=== PATIENT | female | born 1980 | race American Indian/Alaskan Native ===

== ENCOUNTER 2018-06-14 15:42 | Emergency (ER) | payer MEDICARE, MEDICAID, SELFPAY ==
[2018-06-14 15:48] VITALS: BP 121/84; PULSE 69; RESP 18; TEMP 36.7; O2SAT 99
--- NOTE | 2018-06-14 16:19 | ED.EXTPRO ---
HPI - Extremity Problem <KARI Lopez-BC - Last Filed: 06/14/18 16:37> General Chief complaint: Extremity Problem,Nontraumatic Stated complaint: stabbing pains right arm Time Seen by Provider: 06/14/18 16:07 Source: patient Mode of arrival: ambulatory Limitations: no limitations History of Present Illness HPI Narrative: Patient is a 30-year-old female with history of Kienbock's disease who presents with chief complaint of right wrist pain ongoing for over a year. She has been seen at [facility] for this complaint on April 02 of May 28 as well as a visit on June 13. She states she left prior to medical care on the . She states she is finishing her prednisone as well as her Percocet. She denies any recent trauma. She did states that the pain is coming from her wrist in shooting up her hand down her arm. She has taken Tylenol and Aleve. She states she has tried gabapentin but that made her acid reflux worse. She does complain of decreased range of motion in her wrist and her hand. She is requesting contact information for another orthopedist as her original orthopedist will ?not see her anymore. She states she had a CT as well as an MRI done at [facility] last month. Related Data Home Medications Medication Instructions Recorded Confirmed paroxetine HCl [Paxil] 20 mg PO QDAY #0 08/24/11 quetiapine [Seroquel] 100 mg PO QDAY #0 08/24/11 Previous Rx's Medication Instructions Recorded lidocaine 1 patch TOP DAILY #15 each 06/14/18 pregabalin [Lyrica] 75 mg PO BID #30 cap 06/14/18 Review of Systems <ANDRADE LopezBC - Last Filed: 06/14/18 16:37> Review of Systems GENERAL: Denies chills, fatigue, malaise, fever, sweats. HEENT: Denies sinus pain, ear pain, sore throat, difficulty swallowing, dizziness. RESPIRATORY: Denies dyspnea, cough, wheezing, hemoptysis, sputum. CARDIOVASCULAR: Denies chest pain, palpitations, orthopnea, edema, GASTROINTESTINAL: Denies nausea, vomiting, abdominal pain, diarrhea, constipation, melena. : Denies dysuria, frequency, incontinence, hematuria, urinary retention. MUSCULOSKELETAL: See HPI SKIN: Denies rash, skin lesions, or other NEUROLOGIC: Denies weakness, headache, numbness, change in speech, confusion, seizures, incoordination. PSYCHIATRIC: No concerning psychosocial issues. 12 point review of systems is negative except for those stated above Exam <Amy GroverKARI andrews-BC - Last Filed: 06/14/18 16:37> Narrative Exam Narrative: GENERAL: This is a well-nourished, well-developed patient, in no acute distress HEAD: Atraumatic. Normocephalic. No temporal or scalp tenderness. EYES: Pupils equal round and reactive. Extraocular motions intact. No scleral icterus. No injection or drainage. ENT: Nose without bleeding, purulent drainage or septal hematoma. Throat without erythema, tonsillar hypertrophy or exudate. Uvula midline. Airway patent. NECK: Trachea midline. No JVD or lymphadenopathy. Supple, nontender, no meningeal signs. CARDIOVASCULAR: Regular rate and rhythm without murmurs, gallops, or rubs. RESPIRATORY: Clear to auscultation. Breath sounds equal bilaterally. No wheezes, rales, or rhonchi. GASTROINTESTINAL: Abdomen soft, non-tender, nondistended. No hepato-splenomegaly, or palpable masses. No guarding. EXTREMITIES: Diffuse right wrist tenderness to palpation. Positive right radial pulse. Patient is able to flex, extend and rotate wrist approximately 30? all directions. Patient is able to pronate and supinate forearm. Patient is able to thumbs-up, thumbs down, make a okay sign. Capillary refill less than 2 sec. Strength is equal upper extremities bilaterally. Good technical product manager strength right hand. BACK: Nontender without deformity or crepitance. No flank tenderness. NEURO: AOx3. SKIN: No ecchymosis erythema or rash noted right hand or forearm. Initial Vital Signs Initial Vital Signs: Vital Signs Temperature 98.0 F 06/14/18 15:48 Pulse Rate 69 06/14/18 15:48 Respiratory Rate 18 06/14/18 15:48 Blood Pressure 121/84 06/14/18 15:48 Pulse Oximetry 99 06/14/18 15:48 <Cristopher Yun DO - Last Filed: 06/14/18 17:13> Initial Vital Signs Initial Vital Signs: Vital Signs Temperature 98.0 F 06/14/18 15:48 Pulse Rate 69 06/14/18 15:48 Respiratory Rate 18 06/14/18 15:48 Blood Pressure 121/84 06/14/18 15:48 Pulse Oximetry 99 06/14/18 15:48 Course <KARI Lopez-BC - Last Filed: 06/14/18 16:37> Vital Signs - 8 hr 06/14/18 15:48 Temperature 98.0 F Pulse Rate 69 Respiratory Rate 18 Blood Pressure 121/84 Pulse Oximetry 99 <Cristopher Yun DO - Last Filed: 06/14/18 17:13> Vital Signs - 8 hr 06/14/18 15:48 Temperature 98.0 F Pulse Rate 69 Respiratory Rate 18 Blood Pressure 121/84 Pulse Oximetry 99 MDM - Extremity (Nontraumatic) <ANDRADE LopezBC - Last Filed: 06/14/18 16:37> MDM Narrative Medical decision making narrative: Patient is a 38-year-old female presents with chronic right arm pain. She is neurovascularly intact, hemodynamically stable and nontoxic appearing. Given that she does had a CT and an MRI, I do not think she needs any other imaging today specially given that she is neurovascularly intact in does not have any trauma. She is requesting contact information for a new orthopedist so I gave her contact information for [facility]. I discussed at length return precautions to the emergency department. She is already taking Tylenol, Aleve and opiates at this point in time. I am not willing to treat her chronic pain with opiates in the emergency department. Thus I offered her gabapentin but she states that it makes her GERD worse, so I offered her Lyrica. I discussed that this can be an expensive medication on that sure if her insurance will cover it. I also discussed using [id number] lidocaine patches. Discharge Plan Departure Patient Disposition: Home Clinical Impression: Chronic pain of right wrist Discharge Date/Time: 06/14/18 16:43 Interventions: ED Discharge Assessment Last Done: 06/14/18 16:42 Instructions: How To Perform RICE (Rest, Ice, Compress, Elevate), DI for Wrist Pain Activity Restrictions/Additional Instructions: I have given you contact information for [facility]. You can feel free to call them and see if you can arrange follow-up with them. You can also follow up with primary care provider. I am giving you 2 prescriptions today. One is for a pain patch. The other is for that nerve pain medication. I suggest continuing Tylenol, Aleve, rest ice compression elevation as needed and able. Please follow-up with primary care provider. Prescriptions: New pregabalin [Lyrica] 75 mg capsule 75 mg PO BID Qty: 30 RF: 0 lidocaine 5 % adhesive patch,medicated 1 patch TOP DAILY Qty: 15 RF: 0 No Action quetiapine [Seroquel] 100 MG tablet 100 mg PO QDAY Qty: 0 RF: 0 paroxetine HCl [Paxil] 20 MG tablet 20 mg PO QDAY Qty: 0 RF: 0 Referrals: [facility] [Provider Group] <Cristopher Yun DO - Last Filed: 06/14/18 17:13> Cosign ED Attending Francie Attestation: I was available for consultation during this patient's emergency department encounter
--- NOTE | 2018-06-14 16:30 | ED_ITS ---
HPI - Extremity Problem <KARI Lopez-BC - Last Filed: 06/14/18 16:37> General Chief complaint: Extremity Problem,Nontraumatic Stated complaint: stabbing pains right arm Time Seen by Provider: 06/14/18 16:07 Source: patient Mode of arrival: ambulatory Limitations: no limitations History of Present Illness HPI Narrative: Patient is a 30-year-old female with history of Kienbock's disease who presents with chief complaint of right wrist pain ongoing for over a year. She has been seen at [facility] for this complaint on April 02 of May 28 as well as a visit on June 13. She states she left prior to medical care on the . She states she is finishing her prednisone as well as her Percocet. She denies any recent trauma. She did states that the pain is coming from her wrist in shooting up her hand down her arm. She has taken Tylenol and Aleve. She states she has tried gabapentin but that made her acid reflux worse. She does complain of decreased range of motion in her wrist and her hand. She is requesting contact information for another orthopedist as her original orthopedist will ?not see her anymore. She states she had a CT as well as an MRI done at [facility] last month. Related Data Home Medications Medication Instructions Recorded Confirmed paroxetine HCl [Paxil] 20 mg PO QDAY #0 08/24/11 quetiapine [Seroquel] 100 mg PO QDAY #0 08/24/11 Previous Rx's Medication Instructions Recorded lidocaine 1 patch TOP DAILY #15 each 06/14/18 pregabalin [Lyrica] 75 mg PO BID #30 cap 06/14/18 Review of Systems <ANDRADE LopezBC - Last Filed: 06/14/18 16:37> Review of Systems GENERAL: Denies chills, fatigue, malaise, fever, sweats. HEENT: Denies sinus pain, ear pain, sore throat, difficulty swallowing, dizziness. RESPIRATORY: Denies dyspnea, cough, wheezing, hemoptysis, sputum. CARDIOVASCULAR: Denies chest pain, palpitations, orthopnea, edema, GASTROINTESTINAL: Denies nausea, vomiting, abdominal pain, diarrhea, constipation, melena. : Denies dysuria, frequency, incontinence, hematuria, urinary retention. MUSCULOSKELETAL: See HPI SKIN: Denies rash, skin lesions, or other NEUROLOGIC: Denies weakness, headache, numbness, change in speech, confusion, seizures, incoordination. PSYCHIATRIC: No concerning psychosocial issues. 12 point review of systems is negative except for those stated above Exam <Amy GroverKARI andrews-BC - Last Filed: 06/14/18 16:37> Narrative Exam Narrative: GENERAL: This is a well-nourished, well-developed patient, in no acute distress HEAD: Atraumatic. Normocephalic. No temporal or scalp tenderness. EYES: Pupils equal round and reactive. Extraocular motions intact. No scleral icterus. No injection or drainage. ENT: Nose without bleeding, purulent drainage or septal hematoma. Throat without erythema, tonsillar hypertrophy or exudate. Uvula midline. Airway patent. NECK: Trachea midline. No JVD or lymphadenopathy. Supple, nontender, no meningeal signs. CARDIOVASCULAR: Regular rate and rhythm without murmurs, gallops, or rubs. RESPIRATORY: Clear to auscultation. Breath sounds equal bilaterally. No wheezes , rales, or rhonchi. GASTROINTESTINAL: Abdomen soft, non-tender, nondistended. No hepato-splenomegaly , or palpable masses. No guarding. EXTREMITIES: Diffuse right wrist tenderness to palpation. Positive right radial pulse. Patient is able to flex, extend and rotate wrist approximately 30 ? all directions. Patient is able to pronate and supinate forearm. Patient is able to thumbs-up, thumbs down, make a okay sign. Capillary refill less than 2 sec. Strength is equal upper extremities bilaterally. Good camp cook strength right hand. BACK: Nontender without deformity or crepitance. No flank tenderness. NEURO: AOx3. SKIN: No ecchymosis erythema or rash noted right hand or forearm. Initial Vital Signs Initial Vital Signs: Vital Signs Temperature 98.0 F 06/14/18 15:48 Pulse Rate 69 06/14/18 15:48 Respiratory Rate 18 06/14/18 15:48 Blood Pressure 121/84 06/14/18 15:48 Pulse Oximetry 99 06/14/18 15:48 <Cristopher Yun DO - Last Filed: 06/14/18 17:13> Initial Vital Signs Initial Vital Signs: Vital Signs Temperature 98.0 F 06/14/18 15:48 Pulse Rate 69 06/14/18 15:48 Respiratory Rate 18 06/14/18 15:48 Blood Pressure 121/84 06/14/18 15:48 Pulse Oximetry 99 06/14/18 15:48 Course <KARI Lopez-BC - Last Filed: 06/14/18 16:37> Vital Signs - 8 hr 06/14/18 15:48 Temperature 98.0 F Pulse Rate 69 Respiratory Rate 18 Blood Pressure 121/84 Pulse Oximetry 99 <Cristopher Yun DO - Last Filed: 06/14/18 17:13> Vital Signs - 8 hr 06/14/18 15:48 Temperature 98.0 F Pulse Rate 69 Respiratory Rate 18 Blood Pressure 121/84 Pulse Oximetry 99 MDM - Extremity (Nontraumatic) <ANDRADE LopezBC - Last Filed: 06/14/18 16:37> MDM Narrative Medical decision making narrative: Patient is a 38-year-old female presents with chronic right arm pain. She is neurovascularly intact, hemodynamically stable and nontoxic appearing. Given that she does had a CT and an MRI, I do not think she needs any other imaging today specially given that she is neurovascularly intact in does not have any trauma. She is requesting contact information for a new orthopedist so I gave her contact information for [facility]. I discussed at length return precautions to the emergency department. She is already taking Tylenol, Aleve and opiates at this point in time. I am not willing to treat her chronic pain with opiates in the emergency department. Thus I offered her gabapentin but she states that it makes her GERD worse, so I offered her Lyrica. I discussed that this can be an expensive medication on that sure if her insurance will cover it. I also discussed using [id number] lidocaine patches. Discharge Plan Departure Patient Disposition: Home Clinical Impression: Chronic pain of right wrist Discharge Date/Time: 06/14/18 16:43 Interventions: ED Discharge Assessment Last Done: 06/14/18 16:42 Instructions: How To Perform RICE (Rest, Ice, Compress, Elevate), DI for Wrist Pain Activity Restrictions/Additional Instructions: I have given you contact information for [facility]. You can feel free to call them and see if you can arrange follow-up with them. You can also follow up with primary care provider. I am giving you 2 prescriptions today. One is for a pain patch. The other is for that nerve pain medication. I suggest continuing Tylenol, Aleve, rest ice compression elevation as needed and able. Please follow-up with primary care provider. Prescriptions: New pregabalin [Lyrica] 75 mg capsule 75 mg PO BID Qty: 30 RF: 0 lidocaine 5 % adhesive patch,medicated 1 patch TOP DAILY Qty: 15 RF: 0 No Action quetiapine [Seroquel] 100 MG tablet 100 mg PO QDAY Qty: 0 RF: 0 paroxetine HCl [Paxil] 20 MG tablet 20 mg PO QDAY Qty: 0 RF: 0 Ref[facility]: [facility] [Provider Group] <Cristopher Yun DO - Last Filed: 06/14/18 17:13> Cosign ED Attending Francie Attestation: I was available for consultation during this patient's emergency department encounter
== END 2018-06-14 16:43 | disposition home or self-care (01) ==
PROVIDERS: Emergency Provider Nurse Practitioner Family
DX: M25.531 Pain in right wrist (principal); G89.29 Other chronic pain
CPT/HCPCS: 99282

== ENCOUNTER 2021-05-22 12:28 | Emergency (ER) | payer MEDICARE, MEDICAID, SELFPAY ==
[2021-05-22 13:07] VITALS: BP 151/72; PULSE 78; RESP 20; TEMP 37; O2SAT 97
--- NOTE | 2021-05-22 15:31 | DI.RAD.S_ITS ---
PROCEDURE: XR FINGER RT MIN 2V INDICATIONS: Injury to right 5th digit, nail bed TECHNIQUE: AP hand, 2 views of the 5th finger(s) acquired. COMPARISON: [facility], CR, XR WRIST 3+ VIEWS RIGHT, 06/03/2019, 19:20. FINDINGS: Bones: No fractures or dislocations are seen, including involving the 5th finger.. No suspicious bony lesions. Prior postoperative change of the proximal carpus can be seen. Soft tissues: No suspicious soft tissue calcifications. IMPRESSION: Negative for acute fracture or dislocation. Carpus postoperative change noted. Dictated by: Prabhakar Zafar M.D. on 05/22/2021 at 15:26 Approved by: Prabhakar Zafar M.D. on 05/22/2021 at 15:28
--- NOTE | 2021-05-22 15:36 | ED.UPPEXIN ---
HPI - Extremity Injury (Upper) <Marybel Mota PA-C - Last Filed: 05/22/21 19:41> General Chief Complaint: Extremity Injury, Upper Stated Complaint: right pinky finger injury Time Seen by Provider: 05/22/21 15:02 Source: patient Mode of arrival: Ambulatory History of Present Illness HPI narrative: 41-year-old female with no reported past medical history presents to the ED after a nail avulsion injury. Patient states that her pinky finger on the right arm got stuck underneath the seat when she was trying to vacuum her car. Patient was able to extricate her hand but found that she had avulsed the nail, and it was mostl. Patient presents to the ED to get the nail extracted. Patient endorses pain, denies numbness, tingling, weakness. Related Data Home Medications Medication Instructions Recorded Confirmed paroxetine HCl 20 mg tablet (Paxil) 20 mg PO QDAY #0 08/24/11 quetiapine 100 mg tablet (Seroquel) 100 mg PO QDAY #0 08/24/11 Previous Rx's Medication Instructions Recorded lidocaine 5 % topical patch 1 patch TOP DAILY #15 each 06/14/18 pregabalin 75 mg capsule (Lyrica) 75 mg PO BID #30 cap 06/14/18 Review of Systems <Marybel Mota PA-C - Last Filed: 05/22/21 19:41> Constitutional Constitutional: Denies chills, Denies fatigue, Denies fever(s), Denies frequent falls, Denies lethargy and Denies weakness Eyes Eyes: Denies change in vision, Denies eye discharge, Denies irritation and Denies loss of vision ENT Ears, Nose, Mouth, and Throat: Denies change in voice, Denies dizziness, Denies neck pain, Denies sore throat and Denies throat swelling Cardiovascular Cardiovascular: Denies chest pain, Denies irregular heart rhythm, Denies lightheadedness, Denies palpitations, Denies dyspnea, Denies dyspnea on exertion and Denies orthopnea Respiratory Respiratory: Denies cough, Denies dyspnea, Denies dyspnea on exertion and Denies wheezing Gastrointestinal Gastrointestinal: Denies abdominal pain, Denies change in bowel habits, Denies diarrhea, Denies nausea and Denies vomiting Musculoskeletal Musculoskeletal: Denies neck pain and Denies numbness Integumentary/Breasts Skin/Breast: Denies pruritus, Denies erythema, Denies rash and Denies wounds Comments: Nail avulsion injury, right pinky finger. Neurologic Neurologic: Denies behavioral changes, Denies confusion, Denies dizziness, Denies frequent falls, Denies loss of vision, Denies numbness and Denies weakness Psychiatric Psychiatric: Denies anxiety, Denies behavioral changes, Denies confusion, Denies depression, Denies homicidal ideation and Denies suicidal ideation Endocrine Endocrine: Denies fatigue, Denies flushing and Denies palpitations Hematologic/Lymphatic Hematologic/Lymphatic: Denies easy bruising Allergic/Immunologic Allergic/Immunologic: Denies urticaria, Denies throat swelling and Denies wheezing Patient History <Marybel Mota PA-C - Last Filed: 05/22/21 19:41> Medical History Depression Kienbock's disease Surgical History S/P wrist surgery Exam <Marybel Mota PA-C - Last Filed: 05/22/21 19:41> Initial Vital Signs Initial Vital Signs: Vital Signs Temperature 98.6 F 05/22/21 13:07 Pulse Rate 78 05/22/21 13:07 Respiratory Rate 20 05/22/21 13:07 Blood Pressure 151/72 H 05/22/21 13:07 Pulse Oximetry 97 05/22/21 13:07 Const General: cooperative [facility] Head: normocephalic and atraumatic Ears: external ears normal and TM's normal bilaterally Nose: external nose normal and No nasal discharge Face and sinus: sinuses nontender, face symmetric, no sinus tenderness and No dry mucous membranes Mouth: oral mucosae normal and moist mucous membranes Teeth and gingiva: dentition normal Throat: tonsils normal and uvula midline Eyes General: appearance normal, both eyes and all related structures Eyelids: eyelids normal Conjunctivae: conjunctivae normal Sclera: sclerae normal Pupils: PERRL EOM: EOM intact bilaterally Neck Neck: normal visual inspection, trachea midline, No lymphadenopathy, No midline deformity and No JVD Lymphatic: No lymphedema Chest Chest: normal inspection of the chest Resp Effort & Inspection: normal respiratory effort, able to speak in complete sentences, no respiratory distress and no use of accessory muscles Auscultation: clear to auscultation bilaterally, no rales, no rhonchi and no wheezes Cardio Rate: regular rate Rhythm: regular rhythm Heart Sounds: no click, no gallops, no murmurs and no rubs Pulses: normal peripheral pulses GI Inspection: non-distended Palpation: soft, no hepatosplenomegaly, No guarding, No pulsatile mass and No tender Auscultation: normal bowel sounds Back/Spine/Pelvis Back: No CVA tenderness Cervical Spine: cervical ROM normal and No pain with cervical ROM Thoracic/Lumbar Spine: thoracic and lumbar spine normal to inspection Skin General: no rashes or lesions noted, No jaundice and No petechiae Neuro General: patient alert, patient oriented x3, gait normal and no focal motor deficits Speech: speech normal Extrem General: full ROM, no clubbing, cyanosis or edema, no pedal edema and no calf tenderness Other: Little finger in the right hand has a nail avulsion injury, nail mostly detached from the nail bed is. No bleeding visualized. Patient is neurovascularly intact. Psych Appearance: well kempt Mental Status: mental status grossly normal Attitude: cooperative Thought Content: normal and suicidality Judgment: judgment good <Isaac Almanzar MD - Last Filed: 05/22/21 19:43> Initial Vital Signs Initial Vital Signs: Vital Signs Temperature 98.6 F 05/22/21 13:07 Pulse Rate 78 05/22/21 13:07 Respiratory Rate 20 05/22/21 13:07 Blood Pressure 151/72 H 05/22/21 13:07 Pulse Oximetry 97 05/22/21 13:07 Procedures <Marybel Mota PA-C - Last Filed: 05/22/21 19:41> [facility] Procedure Name of Procedure: Finger nail extraction Side (if applicable): right Location: 5th digit Technique/Description of procedure performed: Patient's nail bed numbed with 1 mL of 1% lidocaine without epinephrine. Nail was extracted using a sterile hemostat. Patient tolerated the procedure well. Patient's wound was dressed. Patient tolerated procedure: Well Complications: none Course <Marybel Mota PA-C - Last Filed: 05/22/21 19:41> Orders Ordered: ED Orders 05/22/21 15:31 XR finger RT min 2V Stat Discontinued Medications Ibuprofen (Ibuprofen 600 Mg Tablet) 600 mg PO NOW ONE Stop: 05/22/21 16:01 Last Admin: 05/22/21 16:17 Dose: 600 mg Documented by: KAVITA Lidocaine HCl (Lidocaine 1% 20 Ml) 10 ml INJ NOW ONE Stop: 05/22/21 16:19 Vital Signs Vital signs: Vital Signs - 8 hr 05/22/21 13:07 Temperature 98.6 F Pulse Rate 78 Respiratory Rate 20 Blood Pressure 151/72 H Pulse Oximetry 97 <Isaac Almanzar MD - Last Filed: 05/22/21 19:43> Orders Ordered: ED Orders 05/22/21 15:31 XR finger RT min 2V Stat Discontinued Medications Ibuprofen (Ibuprofen 600 Mg Tablet) 600 mg PO NOW ONE Stop: 05/22/21 16:01 Last Admin: 05/22/21 16:17 Dose: 600 mg Documented by: KAVITA Lidocaine HCl (Lidocaine 1% 20 Ml) 10 ml INJ NOW ONE Stop: 05/22/21 16:19 Vital Signs Vital signs: Vital Signs - 8 hr 05/22/21 13:07 Temperature 98.6 F Pulse Rate 78 Respiratory Rate 20 Blood Pressure 151/[address] [facility] - Extremity Injury (Upper) <Marybel Mota PA-C - Last Filed: 05/22/21 19:41> Imaging Data Extremity x-ray #1: Radiologist's Impression: PROCEDURE:? XR FINGER RT MIN 2V ? INDICATIONS:? Injury to right 5th digit, nail bed ? TECHNIQUE:? AP hand, 2 views of the 5th finger(s) acquired.? ? COMPARISON:? [facility], CR, XR WRIST 3+ VIEWS RIGHT, 06/03/2019, 19:20. ? FINDINGS:? ? Bones:? No fractures or dislocations are seen, including involving the 5th finger..? No suspicious bony lesions.? ? Prior postoperative change of the proximal carpus can be seen. ? Soft tissues:? No suspicious soft tissue calcifications.? ? ? IMPRESSION:? ? Negative for acute fracture or dislocation. ? Carpus postoperative change noted. ? ? Dictated by: Prabhakar Zafar M.D. on 05/22/2021 at 15:26 ? ? Approved by: Prabhakar Zafar M.D. on 05/22/2021 at 15:28 ? MDM Narrative Medical decision making narrative: 41-year-old female with no reported past medical history presents to the ED after a nail avulsion injury. Concern for fracture, dislocation. Obtained x-ray which was negative for any acute findings. Gave ibuprofen for pain, numb the area with lidocaine, extracted the nail. Patient discharged home with ED return precautions and infection precautions. Discharge Plan Departure Patient Disposition: Home Clinical Impression: Nail avulsion Instructions: DI for Nail Avulsion Injury Activity Restrictions/Additional Instructions: You were seen in the ED today for a right-sided pinky finger injury. Your x-ray did not show any dislocations or fractures. Your nail from the pinky finger was extracted today in the ED and dressed. Please make sure to keep the wound clean and dry with soap and water. Return to the ED if you notice any signs of infection including redness, pain, swelling, warmth, discharge. Prescriptions: No Action quetiapine [Seroquel] 100 MG tablet 100 mg PO QDAY Qty: 0 RF: 0 paroxetine HCl [Paxil] 20 MG tablet 20 mg PO QDAY Qty: 0 RF: 0 pregabalin [Lyrica] 75 mg capsule 75 mg PO BID Qty: 30 RF: 0 lidocaine 5 % adhesive patch,medicated 1 patch TOP DAILY Qty: 15 RF: 0
[2021-05-22] MEDS: IBUPROFEN 600 MG TABLET PO (16:17)
== END 2021-05-22 17:16 | disposition home or self-care (01) ==
PROVIDERS: Emergency Provider Student in an Organized Health Care Education/Training Program
DX: S61.306A Unspecified open wound of right little finger with damage to nail, initial encounter (principal); W23.1XXA Caught, crushed, jammed, or pinched between stationary objects, initial encounter
CPT/HCPCS: 11730; 73140; 99283

== ENCOUNTER → 2021-06-21 10:04 | Outpatient (CLI) | payer MEDICARE, MEDICAID, SELFPAY | PROVIDERS: Visit Provider Physician Assistant | DX: N89.8 Other specified noninflammatory disorders of vagina (principal) | CPT/HCPCS: 87210 ==

== ENCOUNTER → 2021-07-04 14:11 | Outpatient (CLI) | payer MEDICARE, MEDICAID, SELFPAY | PROVIDERS: Visit Provider Nurse Practitioner Family | DX: M54.50 Low back pain, unspecified (principal) | CPT/HCPCS: 87086 ==

== ENCOUNTER 2021-07-17 13:57 | Emergency (ER) | payer MEDICARE, MEDICAID, SELFPAY ==
[2021-07-17 14:01] VITALS: BP 148/88; PULSE 80; RESP 15; TEMP 35.8; O2SAT 98; BMI 47.0
[2021-07-17] MEDS: ACETAMINOPHEN 325 MG TABLET 975 MG PO (14:35)
[2021-07-17 14:44] LABS: Add Manual Diff / Slide Review NO; Basophils Absolute Auto 0 /uL (0-100); Basophils Percent Auto 0.2 % (0-2); Eosinophils Absolute Auto 100 /uL (0-450); Eosinophils Percent Auto 1.8 % (2-4); Hematocrit 32.8 % (36-46); Hemoglobin 11.1 g/dL (12.0-16.0); Lymphocytes Absolute Auto 1700 /uL (1100-4500); Lymphocytes Percent Auto 31.1 % (25-40); Mean Corpuscular HGB Conc 33.9 % (30-36); Mean Corpuscular Hemoglobin 26.1 PG (26-34); Mean Corpuscular Volume 77.1 fL (80-100); Monocytes Absolute Auto 300 /uL (0-900); Monocytes Percent Auto 5.8 % (3-14); Neutrophils Absolute Auto 3300 /uL (1500-7000); Neutrophils Percent Auto 61.1 % (50-75); Platelet Count 266 X10^3/uL (150-400); Red Blood Cell Count 4.26 X10^6/uL (4.0-5.2); Red Cell Distribution Width 16.1 % (11.6-14.8); White Blood Cell Count 5.4 X10^3/uL (4.5-11.0)
[2021-07-17 14:53] LABS: BUN Creatinine Ratio 12.2 (6-22); Blood Urea Nitrogen 9 mg/dL (7-17); Calcium 9.7 mg/dL (8.4-10.2); Carbon Dioxide 24 mmol/L (22-32); Chloride 108 mmol/L (98-107); Estimated Glomerular Filt Rate > 60.0 mL/min (>60); Glucose 119 mg/dL (70-100); HEMOLYSIS < 15 (0-50); Potassium 3.9 mmol/L (3.4-5.1); Sodium 141 mmol/L (137-145)
[2021-07-17 15:09] LABS: Bacteria Urine Occasional (0-1); RBC Urine >100/HPF (0-5/HPF); Squamous Epithelial Cell Urine 0-1 /HPF (0-5/HPF); WBC Urine 5-10/HPF (0-5/HPF)
[2021-07-17 15:10] LABS: Culture Indicated Urine Specimen Cultured
[2021-07-17 16:10] VITALS: PULSE 73; O2SAT 97
[2021-07-17 16:11] VITALS: BP 156/92; PULSE 72; O2SAT 97
--- NOTE | 2021-07-17 17:10 | DI.CT.S_ITS ---
PROCEDURE: CT KIDNEY URETER BLADDER (KUB) INDICATIONS: left flank pain and pelvic pain with vaginal bleeding TECHNIQUE: Axial sections were acquired from the lung bases to the pubic symphysis. Coronal and sagittal reformats were performed. For radiation dose reduction, the following was used: automated exposure control, adjustment of mA and/or kV according to patient size. COMPARISON: None. FINDINGS: Image quality: Excellent. Lung bases: Unremarkable. A small hiatal hernia is incidentally noted. Heart: No significant findings. URINARY: Right Kidney: No stones or hydronephrosis. Right Ureter: No hydroureter. Left Kidney: No stones or hydronephrosis. Left Ureter: No hydroureter. Bladder: Normal wall thickness. No stones. ABDOMEN: Liver: Diffuse fatty liver infiltration is noted. Liver demonstrates normal size and no focal lesions. Gallbladder: Unremarkable. Biliary ducts: Unremarkable. Pancreas: Unremarkable. Spleen: Unremarkable. Adrenal Glands: Unremarkable. Stomach and Bowel: Stomach, small bowel loops, and colon are unremarkable. A normal appendix is incidentally noted. Peritoneum: No abnormal intraperitoneal fluid. No free air. Ventral Wall: No hernia. Abdominal Nodes: No enlarged retroperitoneal or mesenteric lymph nodes. Vessels: Aorta and inferior vena cava are normal in size. PELVIS: Pelvic Organs: The uterus appears normal for age. A mildly complex left ovarian cyst is seen that measures up to 4.3 cm. No adnexal masses are seen. Pelvic Nodes: Unremarkable. Miscellaneous: No inguinal hernias are seen. Bones: Focal L5-S1 degenerative change is seen. IMPRESSION: Negative for kidney stones or hydronephrosis. There is a mildly complex left ovarian cyst seen. The scheduled pelvic ultrasound is expected to provide additional diagnostic information. Incidental note is made of: Small hiatal hernia Focal L5-S1 degenerative change Dictated by: Prabhakar Zafar M.D. on 07/17/2021 at 16:37 Approved by: Prabhakar Zafar M.D. on 07/17/2021 at 16:40
--- NOTE | 2021-07-17 17:12 | DI.US.S_ITS ---
PROCEDURE: US PELVIC COMPLETE INDICATIONS: VAGINAL BLEEDING ? FIBROID TECHNIQUE: Real-time scanning was performed of the pelvic organs, with image documentation. Additional endovaginal scanning was necessary due to incomplete visualization of the adnexal and endometrial structures by transabdominal scanning. COMPARISON: None. FINDINGS: Limited secondary to body habitus. Uterus: Uterus is anteverted and normal in size at 10.9 x 4.7 x 6.5 cm. Bicornuate uterus is present. The myometrium is homogeneous. The endometrium measures 9-12 mm combined thickness. Ovaries: The right ovary measures 3.3 x 2.3 x 2.5 cm. The left ovary measures 4.4 x 3.1 x 4.7 cm. 35 mm left or variant cyst is present. Other: No pathologic free abdominal or pelvic fluid. IMPRESSION: No acute process. We strive to produce accurate, complete, and clear reports of imaging services. To assist us in improving patient care, this report was composed using standard report templates and voice recognition software. Therefore, it may contain abnormal punctuation, insertions and/or omissions. Occasional wrong-word or sound-alike substitutions may occur. Though we review the report and make efforts to correct it, we do recommend that the report be read carefully in proper context to recognize any text inaccuracies. Dictated by: Karley Londono M.D. on 07/17/2021 at 18:07 Approved by: Karley Londono M.D. on 07/17/2021 at 18:09
--- NOTE | 2021-07-17 17:13 | ED.FEMALEGU ---
HPI - Female Genitourinary <KEYON Lima - Last Filed: 07/17/21 22:09> General Chief complaint: Vaginal Bleeding Stated complaint: BLOOD CLOTTING BACK PAIN Time Seen by Provider: 07/17/21 16:43 Source: patient Mode of arrival: Ambulatory History of Present Illness HPI Narrative: 41-year-old is a female who presents to the emergency department complaining of 7 week history of vaginal spotting and an a 3 day history of vaginal bleeding which is heavier and started to be malodorous today. This is also associated with left flank pain, right low back pain, nausea, denies fever, denies being sexually active for at least 3 years, before 7 weeks ago after her COVID vaccinations, she reports that she typically has regular normal menstrual periods and this is abnormal for her. She does endorse a history of PCOS and denies any possibility of . Patient reports that she has been seen in the walk-in clinic twice since her symptoms started. Patient also endorses a recent history of bacterial vaginosis with topical metronidazole treatment. Patient reports that she has been taking 4500 mg of Tylenol daily she was also informed that this is taking too much for her pain. She also reports that she takes tizanidine at night and Zoloft. Patient has a pelvic ultrasound scheduled on 08/11/21. Patient denies any dysuria, vomiting but does endorse nausea, diarrhea, chest pain or any other symptoms. Patient : No Related Data Home Medications Medication Instructions Recorded Confirmed sertraline 50 mg tablet (Zoloft) 50 mg PO DAILY 07/04/21 07/04/21 Previous Rx's Medication Instructions Recorded lidocaine 5 % topical patch 1 patch TOP DAILY #15 each 06/14/18 cyclobenzaprine 10 mg tablet 10 mg PO BID PRN #10 tab 07/17/21 Allergies Allergy/AdvReac Type Severity Reaction Status Date / Time No Known Drug Allergies Allergy Verified 07/17/21 14:01 Review of Systems <KEYON Lima - Last Filed: 07/17/21 22:09> Review of Systems Narrative: General: denies fever, chills, endorses fatigue Head/Neck: denies headache, neck pain Eyes: denies visual changes, eye pain Cardio: denies chest pain, palpitations Respiratory: denies shortness of breath, cough GI: denies abdominal pain, endorses low pelvic pain, and nausea without vomiting, or diarrhea : denies dysuria, hematuria MSK: denies joint pain, muscle weakness, endorses low back pain primarily on the right, and left flank pain Skin: denies rash, itching Neuro: denies numbness, tingling Patient History <KEYON Lima - Last Filed: 07/17/21 22:09> Medical History Depression Kienbock's disease Surgical History S/P wrist surgery alcohol intake frequency: holidays/special occasions only Substance Use Type: does not use Exam <KEYON Lima - Last Filed: 07/17/21 22:09> Narrative Exam Narrative: Independently reviewed vitals signs and nursing notes. General: Awake, alert, nontoxic, no cardiorespiratory distress, alert Head/Neck: Atraumatic, neck full range of motion Eyes: EOMI, conjunctiva normal Nose: nares patent, no rhinorrhea Mouth/Throat: moist mucus membranes, posterior pharynx normal, no oral lesions Cardio: Regular rate and rhythm, no peripheral edema Respiratory: respirations unlabored without wheezing, stridor, or rales. No retractions. GI: Abdomen soft, nontender, left CVA tenderness present, no CVA tenderness on the right, right-sided low back muscular tenderness to palpation, no spinal vertebral tenderness on exam HAND BRUSH FILLER: Vaginal bleeding is present, pelvic exam completed samples obtained for wet mount, patient was tender with exam, with adnexal tenderness, malodorous. MSK: Moves all extremities, neurovascularly intact Skin: Normal capillary refill, no rash Neuro: Normal speech and cognition, normal gait Initial Vital Signs Initial Vital Signs: Vital Signs Temperature 96.4 F L 07/17/21 14:01 Pulse Rate 80 07/17/21 14:01 Respiratory Rate 15 07/17/21 14:01 Blood Pressure 148/88 H 07/17/21 14:01 Pulse Oximetry 98 07/17/21 14:01 <Carri Ledesma MD - Last Filed: 08/05/21 13:33> Initial Vital Signs Initial Vital Signs: Vital Signs Temperature 96.4 F L 07/17/21 14:01 Pulse Rate 80 07/17/21 14:01 Respiratory Rate 15 07/17/21 14:01 Blood Pressure 148/88 H 07/17/21 14:01 Pulse Oximetry 98 07/17/21 14:01 Course <KEYON Lima - Last Filed: 07/17/21 22:09> Orders Ordered: Discontinued Medications Acetaminophen (Acetaminophen 325 Mg Tablet) 975 mg PO NOW ONE Stop: 07/17/21 14:32 Last Admin: 07/17/21 14:35 Dose: 975 mg Documented by: KAVITA Ketorolac Tromethamine (Ketorolac 30 Mg/Ml Vial) 15 mg IV NOW ONE Stop: 07/17/21 16:57 Last Admin: 07/17/21 18:23 Dose: Not Given Documented by: JATINDER Ketorolac Tromethamine (Ketorolac 30 Mg/Ml Vial) 15 mg IM NOW ONE Stop: 07/17/21 17:11 Last Admin: 07/17/21 17:24 Dose: 15 mg Documented by: KAVITA Methocarbamol (Methocarbamol 500 Mg Tablet) 500 mg PO NOW ONE Stop: 07/17/21 16:57 Last Admin: 07/17/21 17:23 Dose: 500 mg Documented by: KAVITA Metronidazole (Metronidazole 500 Mg Tablet) 500 mg PO NOW ONE Stop: 07/17/21 17:56 Last Admin: 07/17/21 18:29 Dose: 500 mg Documented by: ARAVIND Ondansetron HCl (Ondansetron 4 Mg/2 Ml Inj) 4 mg IV NOW ONE Stop: 07/17/21 16:57 Last Admin: 07/17/21 18:23 Dose: Not Given Documented by: JATINDER Ondansetron HCl (Ondansetron 4 Mg Odt) 4 mg SL NOW ONE Stop: 07/17/21 17:17 Last Admin: 07/17/21 17:24 Dose: 4 mg Documented by: KAVITA Vital Signs Vital signs: Vital Signs - 8 hr 07/17/21 16:10 07/17/21 16:11 07/17/21 18:37 Pulse Rate 73 72 68 Respiratory Rate 18 Blood Pressure 156/92 H 144/77 H Pulse Oximetry 97 97 97 <Carri Ledesma MD - Last Filed: 08/05/21 13:33> Orders Ordered: Discontinued Medications Acetaminophen (Acetaminophen 325 Mg Tablet) 975 mg PO NOW ONE Stop: 07/17/21 14:32 Last Admin: 07/17/21 14:35 Dose: 975 mg Documented by: KAVITA Ketorolac Tromethamine (Ketorolac 30 Mg/Ml Vial) 15 mg IV NOW ONE Stop: 07/17/21 16:57 Last Admin: 07/17/21 18:23 Dose: Not Given Documented by: JATINDER Ketorolac Tromethamine (Ketorolac 30 Mg/Ml Vial) 15 mg IM NOW ONE Stop: 07/17/21 17:11 Last Admin: 07/17/21 17:24 Dose: 15 mg Documented by: KAVITA Methocarbamol (Methocarbamol 500 Mg Tablet) 500 mg PO NOW ONE Stop: 07/17/21 16:57 Last Admin: 07/17/21 17:23 Dose: 500 mg Documented by: KAVITA Metronidazole (Metronidazole 500 Mg Tablet) 500 mg PO NOW ONE Stop: 07/17/21 17:56 Last Admin: 07/17/21 18:29 Dose: 500 mg Documented by: ARAVIND Ondansetron HCl (Ondansetron 4 Mg/2 Ml Inj) 4 mg IV NOW ONE Stop: 07/17/21 16:57 Last Admin: 07/17/21 18:23 Dose: Not Given Documented by: JATINDER Ondansetron HCl (Ondansetron 4 Mg Odt) 4 mg SL NOW ONE Stop: 07/17/21 17:17 Last Admin: 07/17/21 17:24 Dose: 4 mg Documented by: KAVITA Vital Signs Vital signs: Vital Signs - 8 hr 07/17/21 16:10 07/17/21 16:11 07/17/21 18:37 Pulse Rate 73 72 68 Respiratory Rate 18 Blood Pressure 156/92 H 144/77 H Pulse Oximetry 97 97 97 MDM - Female Genitourinary <KEYON Lima - Last Filed: 07/17/21 22:09> Lab Data Result diagrams: 07/17/21 14:26 07/17/21 14:26 Labs: Lab Results 07/17/21 07/17/21 07/17/21 Range/Units 14:26 14:26 14:26 WBC 5.4 (4.5-11.0) X10^3/uL RBC 4.26 (4.0-5.2) X10^6/uL Hgb 11.1 L (12.0-16.0) g/dL Hct 32.8 L (36-46) % MCV 77.1 L (80-100) fL MCH 26.1 (26-34) PG MCHC 33.9 (30-36) % RDW 16.1 H (11.6-14.8) % Plt Count 266 (150-400) X10^3/uL Neut % (Auto) 61.1 (50-75) % Lymph % (Auto) 31.1 (25-40) % Lyman % (Auto) 5.8 (3-14) % Eos % (Auto) 1.8 L (2-4) % Baso % (Auto) 0.2 (0-2) % Neut # (Auto) 3300 (6047-4795) /uL Lymph # (Auto) 1700 (8071-0931) /uL Lyman # (Auto) 300 (0-900) /uL Eos # (Auto) 100 (0-450) /uL Baso # (Auto) 0 (0-100) /uL Sodium 141 (137-145) mmol/L Potassium 3.9 (3.4-5.1) mmol/L Chloride 108 H (98-107) mmol/L Carbon Dioxide 24 (22-32) mmol/L BUN 9 (7-17) mg/dL Creatinine 0.74 (0.52-1.04) mg/dL Estimated GFR > 60.0 (>60) mL/min BUN/Creatinine Ratio 12.2 (6-22) Glucose 119 H (70-100) mg/dL Calcium 9.7 (8.4-10.2) mg/dL Urine RBC (0-5/HPF) Urine WBC (0-5/HPF) Ur Squamous Epith Cells (0-5/HPF) Urine Bacteria (None) Ur Culture Indicated? Blood Type O Positive Antibody Screen Negative 07/17/21 Range/Units 14:26 WBC (4.5-11.0) X10^3/uL RBC (4.0-5.2) X10^6/uL Hgb (12.0-16.0) g/dL Hct (36-46) % MCV (80-100) fL MCH (26-34) PG MCHC (30-36) % RDW (11.6-14.8) % Plt Count (150-400) X10^3/uL Neut % (Auto) (50-75) % Lymph % (Auto) (25-40) % Lyman % (Auto) (3-14) % Eos % (Auto) (2-4) % Baso % (Auto) (0-2) % Neut # (Auto) (0480-3802) /uL Lymph # (Auto) (3686-5307) /uL Lyman # (Auto) (0-900) /uL Eos # (Auto) (0-450) /uL Baso # (Auto) (0-100) /uL Sodium (137-145) mmol/L Potassium (3.4-5.1) mmol/L Chloride (98-107) mmol/L Carbon Dioxide (22-32) mmol/L BUN (7-17) mg/dL Creatinine (0.52-1.04) mg/dL Estimated GFR (>60) mL/min BUN/Creatinine Ratio (6-22) Glucose (70-100) mg/dL Calcium (8.4-10.2) mg/dL Urine RBC >100/hpf H (0-5/HPF) Urine WBC 5-10/hpf H (0-5/HPF) Ur Squamous Epith Cells 0-1 /hpf (0-5/HPF) Urine Bacteria Occasional (0-1) (None) Ur Culture Indicated? Specimen cultured Blood Type Antibody Screen Point of Care Testing Test Results Negative Urine Dip Bedside Urine Glucose 100 mg/dl Bedside Urine Bilirubin ++ 2 Bedside Urine Ketone + 15 Urine Specific [place] 1.020 Bedside Urine Occult Blood +++ Bedside Urine pH 5.0 Bedside Urine Protein ++ 100 Bedside Urine Urobilinogen 2+ 4mg Bedside Urine Nitrite + Positive Bedside Urine Leukocytes +++ [address] scan - abdomen/pelvis: Radiologist's Impression: PROCEDURE:? CT KIDNEY URETER BLADDER (KUB) ? INDICATIONS:? left flank pain and pelvic pain with vaginal bleeding ? TECHNIQUE:? Axial sections were acquired from the lung bases to the pubic symphysis.? Coronal and sagittal reformats were performed.? For radiation dose reduction, the following was used: ?automated exposure control, adjustment of mA and/or kV according to patient size.? ? COMPARISON:? None. ? FINDINGS:? Image quality:? Excellent.? ? Lung bases:? Unremarkable.? ? A small hiatal hernia is incidentally noted.? Heart:? No significant findings. ? URINARY: Right Kidney: ? No stones or hydronephrosis.? Right Ureter:? No hydroureter.? ? Left Kidney: ? No stones or hydronephrosis. Left Ureter:? No hydroureter.? ? Bladder:? Normal wall thickness. No stones. ? ? ? ABDOMEN: Liver: Diffuse fatty liver infiltration is noted.? Liver demonstrates normal size and no focal lesions. Gallbladder:? Unremarkable.? ? Biliary ducts:? Unremarkable.? ? Pancreas:? Unremarkable.? ? Spleen:? Unremarkable.? ? Adrenal Glands:? Unremarkable.? ? ? Stomach and Bowel:? Stomach, small bowel loops, and colon are unremarkable.? A normal appendix is incidentally noted.? Peritoneum:? No abnormal intraperitoneal fluid.? No free air.? ? Ventral Wall: ? No hernia.? Abdominal Nodes:? No enlarged retroperitoneal or mesenteric lymph nodes.? Vessels:? Aorta and inferior vena cava are normal in size.? ? PELVIS: Pelvic Organs: The uterus appears normal for age.? A mildly complex left ovarian cyst is seen that measures up to 4.3 cm. No adnexal masses are seen.? Pelvic Nodes: Unremarkable. Miscellaneous: No inguinal hernias are seen. ? ? ? Bones:? Focal L5-S1 degenerative change is seen. ? IMPRESSION:? ? Negative for kidney stones or hydronephrosis. ? There is a mildly complex left ovarian cyst seen.? The scheduled pelvic ultrasound is expected to provide additional diagnostic information. ? ? ? Incidental note is made of: Small hiatal hernia Focal L5-S1 degenerative change ? Dictated by: Prabhakar Zafar M.D. on 07/17/2021 at 16:37 ? ? Approved by: Prabhakar Zafar M.D. on 07/17/2021 at 16:40 ? US - HAND BRUSH FILLER: Radiologist's Impression: PROCEDURE:? US PELVIC COMPLETE ? INDICATIONS:? VAGINAL BLEEDING ? FIBROID ? TECHNIQUE:? Real-time scanning was performed of the pelvic organs, with image documentation.? Additional endovaginal scanning was necessary due to incomplete visualization of the adnexal and endometrial structures by transabdominal scanning.? ? COMPARISON:? None. ? FINDINGS:? Limited secondary to body habitus. ?? Uterus:? Uterus is anteverted and normal in size at 10.9 x 4.7 x 6.5 cm.? Bicornuate uterus is present.? The myometrium is homogeneous. ? The endometrium measures 9-12 mm combined thickness.? ? Ovaries:? The right ovary measures 3.3 x 2.3 x 2.5 cm.? The left ovary measures 4.4 x 3.1 x 4.7 cm.? 35 mm left or variant cyst is present. ? Other:? No pathologic free abdominal or pelvic fluid. ? ? IMPRESSION:? No acute process. ? ? We strive to produce accurate, complete, and clear reports of imaging services. To assist us in improving patient care, this report was composed using standard report templates and voice recognition software. Therefore, it may contain abnormal punctuation, insertions and/or omissions. Occasional wrong-word or sound-alike substitutions may occur. Though we review the report and make efforts to correct it, we do recommend that the report be read carefully in proper context to recognize any text inaccuracies. ? ? Dictated by: Karley Londono M.D. on 07/17/2021 at 18:07 ? ? Approved by: Karley Londono M.D. on 07/17/2021 at 18:09 ? [facility] Narrative Medical decision making narrative: 41-year-old female presents to the emergency department for pelvic pain, left flank pain, nausea, and low back pain. On exam patient was tender over her left lower quadrant, left CVA tenderness, pelvic pain, vaginal pain, with adnexal tenderness. Patient is not sexually active, was recently treated for bacterial vaginosis with topical metronidazole and reports that she began having similar symptoms including pelvic pain with a strong odor today. Lab work did not show any significant anemia, her hemoglobin is 11.1, hematocrit 32.8. Patient reports that she is going through 3-5 pads each day, and is complaining of pelvic discomfort similar to her bacterial vaginosis. Because she is still symptomatic from this, a wet prep was obtained although my not show good results due to her menorrhagia. This I wanted to treat her empirically for this and her adnexal tenderness although this may be due to her a ovarian cyst which was present on her ultrasound. ?The right ovary measures 3.3 x 2.3 x 2.5 cm.? The left ovary measures 4.4 x 3.1x 4.7 cm.? 35 mm left or variant cyst is present.?Uterus is anteverted and normal in size at 10.9 x 4.7 x 6.5 cm.? Bicornuate uterus is present.? The myometrium is homogeneous. ? The endometrium measures 9-12 [address] thickness.? CT abdomen pelvis shows a mildly complex left ovarian cyst, negative for kidney stones or hydronephrosis, incidentally a small hiatal hernia and focal L5-S1 degenerative changes were viewed. Overall lab work was fairly unremarkable without concerning infectious process. Patient reports that she has a history of a blood clot disorder, and a factor deficiency although she is not sure which 1 but reports that she had to take heparin while she was and she had a stillborn due to a blood clot in the umbilical cord. I opted to not start her on control pills for this reason as well as for her age for her menorrhagia. I opted to instead refer her to OBGYN who may have a better plan of care regarding her ovarian cyst, pain, and menorrhagia. She understands to follow-up with Dr. Peter and her primary care provider for these issues. Patient is appropriate and amenable to discharge home. Vital signs are stable on repeat examination is unremarkable. Patient has been informed of results. Patient has been given strict return to ER precautions for any new or worsening symptoms. Patient understands to follow up closely with outpatient providers as instructed. Patient understands plan and agrees to discharge home. All questions and concerns answered at this time. <Carri Ledesma MD - Last Filed: 08/05/21 13:33> Lab Data Labs: Lab Results 07/17/21 07/17/21 07/17/21 Range/Units 14:26 14:26 14:26 WBC 5.4 (4.5-11.0) X10^3/uL RBC 4.26 (4.0-5.2) X10^6/uL Hgb 11.1 L (12.0-16.0) g/dL Hct 32.8 L (36-46) % MCV 77.1 L (80-100) fL MCH 26.1 (26-34) PG MCHC 33.9 (30-36) % RDW 16.1 H (11.6-14.8) % Plt Count 266 (150-400) X10^3/uL Neut % (Auto) 61.1 (50-75) % Lymph % (Auto) 31.1 (25-40) % Lyman % (Auto) 5.8 (3-14) % Eos % (Auto) 1.8 L (2-4) % Baso % (Auto) 0.2 (0-2) % Neut # (Auto) 3300 (0278-6290) /uL Lymph # (Auto) 1700 (3955-4561) /uL Lyman # (Auto) 300 (0-900) /uL Eos # (Auto) 100 (0-450) /uL Baso # (Auto) 0 (0-100) /uL Sodium 141 (137-145) mmol/L Potassium 3.9 (3.4-5.1) mmol/L Chloride 108 H (98-107) mmol/L Carbon Dioxide 24 (22-32) mmol/L BUN 9 (7-17) mg/dL Creatinine 0.74 (0.52-1.04) mg/dL Estimated GFR > 60.0 (>60) mL/min BUN/Creatinine Ratio 12.2 (6-22) Glucose 119 H (70-100) mg/dL Calcium 9.7 (8.4-10.2) mg/dL Urine RBC (0-5/HPF) Urine WBC (0-5/HPF) Ur Squamous Epith Cells (0-5/HPF) Urine Bacteria (None) Ur Culture Indicated? Blood Type O Positive Antibody Screen Negative 07/17/21 Range/Units 14:26 WBC (4.5-11.0) X10^3/uL RBC (4.0-5.2) X10^6/uL Hgb (12.0-16.0) g/dL Hct (36-46) % MCV (80-100) fL MCH (26-34) PG MCHC (30-36) % RDW (11.6-14.8) % Plt Count (150-400) X10^3/uL Neut % (Auto) (50-75) % Lymph % (Auto) (25-40) % Lyman % (Auto) (3-14) % Eos % (Auto) (2-4) % Baso % (Auto) (0-2) % Neut # (Auto) (2590-3144) /uL Lymph # (Auto) (0269-2043) /uL Lyman # (Auto) (0-900) /uL Eos # (Auto) (0-450) /uL Baso # (Auto) (0-100) /uL Sodium (137-145) mmol/L Potassium (3.4-5.1) mmol/L Chloride (98-107) mmol/L Carbon Dioxide (22-32) mmol/L BUN (7-17) mg/dL Creatinine (0.52-1.04) mg/dL Estimated GFR (>60) mL/min BUN/Creatinine Ratio (6-22) Glucose (70-100) mg/dL Calcium (8.4-10.2) mg/dL Urine RBC >100/hpf H (0-5/HPF) Urine WBC 5-10/hpf H (0-5/HPF) Ur Squamous Epith Cells 0-1 /hpf (0-5/HPF) Urine Bacteria Occasional (0-1) (None) Ur Culture Indicated? Specimen cultured Blood Type Antibody Screen Point of Care Testing Test Results Negative Urine Dip Bedside Urine Glucose 100 mg/dl Bedside Urine Bilirubin ++ 2 Bedside Urine Ketone + 15 Urine Specific [place] 1.020 Bedside Urine Occult Blood +++ Bedside Urine pH 5.0 Bedside Urine Protein ++ 100 Bedside Urine Urobilinogen 2+ 4mg Bedside Urine Nitrite + Positive Bedside Urine Leukocytes +++ 500 Esterase Discharge Plan Departure Patient Disposition: Home Clinical Impression: Menorrhagia, Ovarian cyst, Bacterial vaginosis Instructions: DI for Ovarian Cyst, DI for Menorrhagia Activity Restrictions/Additional Instructions: *You have been diagnosed with menorrhagia (heavy menstrual bleeding), and bacterial vaginosis. Please finish these antibiotics that I prescribed for you to help treat your vaginosis. Please follow-up with Dr. Peter to address your heavy menstrual bleeding I did not prescribe you control pills due to your clotting disorder which would be something I would normally do for somebody with heavy menstrual bleeding. This means that this may continue. Please follow-up with your primary care provider at were no mesh or if any of the providers are seen any patient's. Otherwise follow-up with Dr. Peter with OBGYN. *What to do: *Please continue to take your regular medications as directed. [ x New medication prescriptions sent to your pharmacy: [ [facility]] [ ] New medication written as a paper prescription [ ] No new medications given *Please follow up with your primary care provider in 2-3 days, call for an appointment. Let them know you were seen in the Emergency Department and that we ask that you be seen in follow up. We will electronically transmit a record of today's note if your PCP is in our system *If you do not have a primary care provider please contact the [facility] Resource line at [phone]. They will ask some questions about your medical history and help get you set up with a doctor in the community. *Return to Emergency Department if you should have any new, worsening or concerning symptoms, such as [fever greater than 101F, chills, worsening pain, persistent vomiting or other bothersome symptoms] Prescriptions: New cyclobenzaprine 10 mg tablet 10 mg PO BID PRN (Reason: muscle spasm) Qty: 10 0RF No Action sertraline [Zoloft] 50 mg tablet 50 mg PO DAILY 0RF lidocaine 5 % adhesive patch,medicated 1 patch TOP DAILY Qty: 15 0RF Rx Instructions: leave on most painful area for 12 hrs Referrals: Kalani Peter MD [Physician] - 3-5 days (for menorrhagia) <Carri Ledesma MD - Last Filed: 08/05/21 13:33> Cosign ED Attending [place] Attestation: I was immediately available in the department for consultation throughout this patient's visit. I agree with documentation as above. Carri Ledesma MD
[2021-07-17] MEDS: methocarbamoL 500 MG TABLET PO (17:23)
[2021-07-17] MEDS: KETOROLAC 30 MG/ML VIAL 15 MG IM (17:24)
[2021-07-17] MEDS: ONDANSETRON 4 MG ODT SL (17:24)
[2021-07-17] MEDS: metroNIDAZOLE 500 MG TABLET PO (18:29)
[2021-07-17 18:37] VITALS: BP 144/77; PULSE 68; RESP 18; O2SAT 97
== END 2021-07-17 18:37 | disposition home or self-care (01) ==
PROVIDERS: Emergency Medicine; Emergency Provider Nurse Practitioner Critical Care Medicine
DX: N76.0 Acute vaginitis (principal); N92.0 Excessive and frequent menstruation with regular cycle; N83.202 Unspecified ovarian cyst, left side
CPT/HCPCS: 36415; 74176; 76830; 76856; 80048; 81003; 81015; 81025; 85025; 86850; 86900; 86901; 87086; 87210; 96372; 99284; J1885

== ENCOUNTER → 2021-09-26 12:53 | Outpatient (CLI) | payer MEDICARE, MEDICAID, SELFPAY | PROVIDERS: Visit Provider Physician Assistant | DX: N39.0 Urinary tract infection, site not specified (principal) | CPT/HCPCS: 87077; 87086; 87186 ==

== ENCOUNTER 2022-09-11 19:50 | Emergency (ER) | payer OTHER, MEDICAID, SELFPAY ==
[2022-09-11 19:59] VITALS: BP 128/83; PULSE 77; RESP 18; TEMP 36.4; O2SAT 100
--- NOTE | 2022-09-11 20:22 | ED_ITS ---
HPI - Skin/Abscess/Foreign Bdy General Chief complaint: Skin/Abscess/Foreign Body Stated complaint: abscess at infusion site Time Seen by Provider: 09/11/22 20:10 Source: patient Mode of arrival: Ambulatory Limitations: no limitations History of Present Illness HPI narrative: This is a 42-year-old female presents to the emergency department due to a area of erythema to her left antecubital area. She states that she gets routine iron infusions with the last 1 being yesterday. She states that she got the infusion in the left arm yesterday and this morning noticed some erythema and swelling to the antecubital area of the left upper extremity. She states she called the [facility] who recommended she come to the emergency department for an ultrasound. She denies any fevers, nausea, vomiting, numbness, or any other concerning signs or symptoms. Related Data Home Medications Medication Instructions Recorded Confirmed sertraline 50 mg tablet (Zoloft) 50 mg PO DAILY 07/04/21 09/26/21 ascorbate calcium (vitamin C) 500 500 mg PO DAILY 08/21/21 09/26/21 mg tablet docusate sodium [Stool Softener] PO 08/21/21 09/26/21 iron PO 08/21/21 09/26/21 Previous Rx's Medication Instructions Recorded cyclobenzaprine 10 mg tablet 10 mg PO BID PRN muscle spasm #10 07/17/21 tabs triamcinolone acetonide 0.1 % 1 applic topical TID #80 grams 09/26/21 topical cream Allergies Allergy/AdvReac Type Severity Reaction Status Date / Time ibuprofen Allergy Intermediate Swelling Verified 08/21/21 09:14 of the Eye Review of Systems Review of Systems Narrative: GENERAL: Denies chills, fatigue, malaise, fever, sweats. HEENT: Denies sinus pain, ear pain, sore throat, difficulty swallowing, dizziness. RESPIRATORY: Denies dyspnea, cough, wheezing, hemoptysis, sputum. CARDIOVASCULAR: Denies chest pain, palpitations, orthopnea, edema, GASTROINTESTINAL: Denies nausea, vomiting, abdominal pain, diarrhea, constipation, melena. : Denies dysuria, frequency, incontinence, hematuria, urinary retention. MUSCULOSKELETAL: denies weakness, joint pain, or bony pain SKIN: Rash to left antecubital area NEUROLOGIC: Denies weakness, headache, numbness, change in speech, confusion, seizures, incoordination. PSYCHIATRIC: No concerning psychosocial issues. 12 point review of systems is negative except for those stated above Patient History Medical History Allergies (~2015) Anemia (~1999) Ankle pain (~2015) Anxiety (~1989) Carpal tunnel syndrome (~2017) Cervical spine disease (~1997) Depression (~1989) Fractures (~2015) GERD (gastroesophageal reflux disease) (~2006) Headache (~2009) Heavy menstrual period (~1989) Hemorrhoid (~2008) Kienbock's disease Ovarian cyst (~1999) PTSD (post-traumatic stress disorder) (~1989) Tinnitus (~2008) Surgical History Anesthesia History of surgery (~2015) S/P wrist surgery (~2017) Family History Father Mental health problem Mother Hypertension Hyperlipidemia Mental health problem Sister Diabetes mellitus Mental health problem Grandmother Diabetes mellitus History of heart disease Hyperlipidemia Hypertension Family/Other Hyperlipidemia Social History Smoking Status: Never smoker Smoking Status: Never smoker alcohol intake frequency: holidays/special occasions only Substance Use Type: does not use Exam Narrative Exam Narrative: GENERAL: Well-developed patient, in mild distress. HEAD: Atraumatic. Normocephalic. EYES: Pupils equal round and reactive. Extraocular motions intact. No scleral icterus. No injection or drainage. ENT: Nose without bleeding, purulent drainage. Throat without erythema, tonsillar hypertrophy or exudate. Airway patent. NECK: Trachea midline. Non tender EXTREMITIES: No edema or joint tenderness. BACK: Nontender without deformity or crepitance. No flank tenderness. NEURO: AOx3. SKIN: Approximately 10 cm in diameter oval shaped area of erythema with some fluctuance to the antecubital fossa. Warmer to the touch compared to surrounding areas. No discharge or drainage. Initial Vital Signs Initial Vital Signs: Vital Signs Temperature 97.5 F L 09/11/22 19:59 Pulse Rate 77 09/11/22 19:59 Respiratory Rate 18 09/11/22 19:59 Blood Pressure 128/83 09/11/22 19:59 Pulse Oximetry 100 09/11/22 19:59 Oxygen Delivery Method Room Air 09/11/22 19:59 Course Orders Ordered: ED Orders 09/11/22 20:27 US periph venous up extrem lt Stat Vital Signs Vital signs: Vital Signs - 8 hr 09/11/22 19:59 Temperature 97.5 F L Pulse Rate 77 Respiratory Rate 18 Blood Pressure 128/83 Pulse Oximetry 100 Oxygen Delivery Method Room Air MDM - Skin/Abscess/Foreign Bdy Imaging Data US - DVT: Radiologist's Impression: Spoke with vascular research and development technician who stated that per preliminary report negative for DVT but did show a thrombosed superficial vein near the area of question. MDM Narrative Medical decision making narrative: MDM * differential diagnosis includes but not limited to abscess, cellulitis, DVT, thrombosed superficial vein * Prior records reviewed: Patient has not been here for similar complaints in the past * My lab interpretation: None ordered * My imgaing interpretation: Per research and development technician preliminary report negative for DVT but did show a thrombosed superficial vein. * Clinical Decision Rules/Scores evaluated: Wells Criteria - 0 * Independent discussions with: None ED Course: This is a 42-year-old female presents to the emergency department complaining of left elbow swelling after IV infusion yesterday. A ultrasound was ordered to rule out DVT. Negative for DVT but did report a thrombosed superficial vein 10 cm from the deep vein. Low suspicion for any kind of infectious processes due to lack of drainage or fevers. Recommended warm compresses and follow up with primary care provider. Shared Decision Making: Discussed plan with patient who is comfortable with the plan Social Considerations: None Disposition: Discharged home Discharge Plan Departure Patient Disposition: Home Clinical Impression: Superficial vein thrombosis Activity Restrictions/Additional Instructions: Thank you for coming to the [facility] Emergency Department today. As discussed the ultrasound was negative for deep vein thrombosis leg you were concerned about. It did show a superficial venous thrombosis that does not need further treatment other than the warm compresses discussed. At this time I do not believe that this is infectious in nature and a not think he needs antibiotics. If begin to notice any drainage, fevers, or worsening warmth and redness to the area please return for further evaluation. I also recommend he follow up with the primary care provider within the week for further evaluation and continued care. I hope you feel better soon. Prescriptions: No Action sertraline [Zoloft] 50 mg tablet 50 mg PO DAILY triamcinolone acetonide 0.1 % cream 1 applic topical TID Qty: 80 0RF iron PO ascorbate calcium (vitamin C) 500 mg tablet 500 mg PO DAILY docusate sodium [Stool Softener] PO cyclobenzaprine 10 mg tablet 10 mg PO BID PRN (Reason: muscle spasm) Qty: 10 0RF Referrals: Linda Merino PA-C [Primary Care Provider] - Stand Alone Forms: Patient Portal/API
--- NOTE | 2022-09-11 20:27 | DI.US.S_ITS ---
PROCEDURE: US PERIPH VENOUS UP EXTREM LT INDICATIONS: LUE swelling TECHNIQUE: Real-time imaging, as well as color and pulse Doppler interrogation, was performed of the left upper extremity deep veins from the inferior neck to the antecubital fossa. COMPARISON: None. FINDINGS: The internal jugular vein, visualized portions of the subclavian vein, axillary, and brachial veins are free of intraluminal thrombus. Where physically possible, the veins are normally compressible. Color and pulse Doppler demonstrate normal intraluminal flow, with expected phasicity and pulsatility. Additional scanning of the cephalic and basilic veins of the superficial system demonstrate normal compressibility, without thrombus. In the area of clinical concern, there is a thrombosed superficial vein superior to the antecubital fossa. IMPRESSION: 1. No evidence of deep venous thrombosis in the left upper extremity. 2. Thrombosed superficial vein demonstrated in the left upper arm in the area of clinical concern consistent with superficial thrombophlebitis. Dictated by: Jose De Jesus Mtz M.D. on 09/11/2022 at 22:09 Approved by: Jose De Jesus Mtz M.D. on 09/11/2022 at 22:11
== END 2022-09-11 21:45 | disposition home or self-care (01) ==
PROVIDERS: Emergency Provider Physician Assistant Medical; PCP Student in an Organized Health Care Education/Training Program
DX: I82.612 Acute embolism and thrombosis of superficial veins of left upper extremity (principal)
CPT/HCPCS: 93971; 99283

== ENCOUNTER 2025-07-09 09:56 | Inpatient (IN) | payer MEDICARE, MEDICAID, SELFPAY ==
[2025-07-09] VITALS (44 sets, daily range): BP systolic 90–134; BP diastolic 44–70; PULSE 60–96; RESP 13–28; TEMP 36–37.1; O2SAT 94–100; BMI 36.0
--- OUTSIDE RECORDS SUMMARY | 2025-07-09 09:59 | XMS_ITS | Clinical Summary ---
Author Organization [facility] tem Address [address] [place] [address] Care Team Providers Care Noise Tester Name Role Phone Teresa Shearer MD Primary Care Provider [phone] Allergies Active Allergy Reactions Criticality Noted Date Comments Hydromorphone Agitation/Anxiety High 04/03/2020 Causes halluinations Meloxicam GI Upset Medium 12/03/2017 Other reaction(s): Other OTHER: GI intolerance States reflux up into throat and eustachian tubes with burning. States reflux up into throat and eustachian tubes with burning. Other reaction(s): Other OTHER: GI intolerance States reflux up into throat and eustachian tubes with burning. Nefazodone Throat Swelling High 09/25/2015 Other reaction(s): Tongue Swelling Other reaction(s): Throat Swelling Other reaction(s): Throat Swelling Other reaction(s): Tongue Swelling Oxycodone Itching, Pruritus Low 09/25/2015 Only when on high doses. Is fine when she has to take 5mg/day. Pregabalin Rash,Swelling Medium 07/03/2018 Risperidone Swelling,Throat Swelling High 09/25/2015 Other reaction(s): Throat, Tongue Swelling, Angioderma Other reaction(s): Throat Swelling Other reaction(s): Angioderma Other reaction(s): Throat Swelling Other reaction(s): Throat, Tongue Swelling, Angioderma Tramadol Diarrhea Low 09/25/2015 Other reaction(s): Throat Swelling Other reaction(s): Angioderma Medications sertraline (ZOLOFT) 50 MG Tab 1 Active Ferrous Sulfate (IRON OR) Take by mouth. Activ e Ascorbic Acid (VITAMIN C OR) Take by mouth. Active Docusate Calcium (STOOL SOFTENER OR) Take by mouth. Ac tive aspirin 81 MG Chew Tab Take 81 mg by mouth. Active hydrOXYzine hcl (ATARAX) 10 MG Tab Take 10 mg by mouth. Active ibuprofen (MOTRIN) 200 MG Tab Take 200 mg by mouth. Active mupirocin (BACTROBAN) 2 % OintmentIndicat ions:Infected skin lesion Apply 1 Application externally three times a day. 30 g 1 Active fluconazole (DIFLUCAN) 150 MG TabIndications: Infected skin lesion Take 1 Tablet by mouth every week. 2 Tablet 1 Active Social History Tobacco Use Types Packs/Day Years Used Date Smoking Tobacco: Never Smokeless Tobacco: Never PHQ-2 Answer Date Recorded PHQ-2 Score 2 03/21/2021 Comments No Sex and Gender Information Value Date Recorded Sex Assigned at Unknown 08/04/2019 10:29 AM PST Legal Sex Female 10:29 AM PST Gender Identity Not Listed 08/04/2019 10:29 AM PST Sexual Orientation Not on file Last Filed Vital Signs Vital Sign Reading Time Taken Comments Blood Pressure 122/80 03/21/2021 1:31 PM PDT Pulse 80 03/21/2021 1:31 PM PDT Temperature 36.2 C (97.1 F) 03/21/2021 1:31 PM PDT Respiratory Rate 18 03/21/2021 1:31 PM PDT Oxygen Saturation 97% 03/21/2021 1:31 PM PDT Inhaled Oxygen Concentration - - Weight 127.4 kg (280 lb 12.8 oz) 03/21/2021 1:31 PM PDT Height - - Body Mass Index - - Plan of Treatment Not on file Insurance MEDICAID [place] [employer] MEDICARE Care Teams Noise Tester Relationship Specialty Start Date End Date Teresa Shearer MD [address] [place] [address] PCP - General Family Medicine/Obstetrics 03/21/21
--- NOTE | 2025-07-09 10:02 | ED.FEMALEGU ---
HPI - Female Genitourinary General Chief complaint: Vaginal Bleeding Stated complaint: Hemhorraging from uterus Time Seen by Provider: 07/09/25 10:00 History of Present Illness HPI Narrative: 45-year-old female history of iron-deficiency anemia presents with dizziness lightheadedness after having gone through 40 pads with profuse vaginal bleeding feeling weak at this time starting evening at July 07. Other than what is stated 14 point review of system is negative. Related Data Home Medications ?Medication ?Instructions ?Recorded ?Confirmed sertraline 50 mg tablet (Zoloft) 50 mg PO DAILY 07/04/21 07/09/25 ascorbate calcium (vitamin C) 500 500 mg PO DAILY 08/21/21 07/09/25 mg tablet docusate sodium [Stool Softener] PO 08/21/21 09/26/21 Held on 07/09/25. Instructions: Provider's Order albuterol sulfate 90 mcg/actuation 2 puff inhalation Q8H PRN 07/09/25 07/09/25 aerosol inhaler shortness of breath or wheezing buprenorphine 8 mg-naloxone 2 mg 0.5 film sublingual BID 07/09/25 07/09/25 sublingual film ferrous sulfate 325 mg (65 mg 325 mg PO DAILY 07/09/25 07/09/25 iron) tablet (FeroSul) Previous Rx's ?Medication ?Instructions ?Recorded cyclobenzaprine 10 mg tablet 10 mg PO BID PRN muscle spasm #10 07/17/21 tabs triamcinolone acetonide 0.1 % 1 applic topical TID #80 grams 09/26/21 topical cream Allergies Allergy/AdvReac Type Severity Reaction Status Date / Time ibuprofen Allergy Intermediate Swelling Verified 08/21/21 09:14 of the Eye Review of Systems Review of Systems ROS Unobtainable: All systems reviewed & are unremarkable except as noted in HPI and below Patient History Medical History Allergies (~2015) PTSD (post-traumatic stress disorder) (~1989) Headache (~2009) Fractures (~2015) Cervical spine disease (~1997) Carpal tunnel syndrome (~2017) Ankle pain (~2015) Anemia (~1999) Tinnitus (~2008) Ovarian cyst (~1999) Heavy menstrual period (~1989) Hemorrhoid (~2008) GERD (gastroesophageal reflux disease) (~2006) Anxiety (~1989) Depression (~1989) Kienbock's disease Surgical History Anesthesia History of surgery (~2015) S/P wrist surgery (~2017) Family History Father Mental health problem Mother Hypertension Hyperlipidemia Mental health problem Sister Diabetes mellitus Mental health problem Grandmother Diabetes mellitus History of heart disease Hyperlipidemia Hypertension Family/Other Hyperlipidemia Exam Narrative Exam Narrative: GENERAL: [45] year old patient appears stated age. Well-developed patient, in mild distress. HEAD: Atraumatic. Normocephalic. EYES: Pupils equal round and reactive. Extraocular motions intact. No scleral icterus. No injection or drainage. NECK: Trachea midline. Non tender CARDIOVASCULAR: Regular rate and rhythm without murmurs, gallops, or rubs. RESPIRATORY: Clear to auscultation. Breath sounds equal bilaterally. No wheezes, rales, or rhonchi. GASTROINTESTINAL: Abdomen soft, non-tender, nondistended. EXTREMITIES: No edema or joint tenderness. BACK: Nontender without deformity or crepitance. No flank tenderness. NEURO: AOx3. SKIN: No rash or erythema of visible areas Initial Vital Signs Initial Vital Signs: Vital Signs Pulse Rate 94 H 07/09/25 10:05 Blood Pressure 119/70 07/09/25 10:05 Pulse Oximetry 100 07/09/25 10:05 Course Orders Ordered: ED Orders 07/09/25 10:08 US pelvic complete Stat 07/09/25 10:12 CBC Auto Diff [Complete Blood Count AUTO DIFF] Stat CMP [Comprehensive Metabolic Panel] Stat HCG Quantitative /Beta subunit Stat Hemoglobin A1C% w Est Avg Glu Stat PT [Prothrombin Time INR] Stat Type and Screen Stat transfuse [Packed Cells] Stat 07/09/25 12:00 FSH [Follicle Stimulating Hormone] Stat TSH [Thyroid Stimulating Hormone] Stat 07/09/25 13:12 EKG-12 Lead Stat 07/09/25 13:45 Urinalysis and Microscopic Stat Acetaminophen (Acetaminophen 325 Mg Tablet) 650 mg PO Q6H OZ Docusate Sodium (Docusate 100 Mg Capsule) 100 mg PO BID OZ Estradiol (Estradiol 0.5 Mg Tablet) 1 mg PO DAILY OZ Tranexamic Acid 1,000 mg/ (Sodium Chloride) 100 mls @ 200 mls/hr IV INTRA-OP OZ Stop: 07/11/25 19:29 Lactated Ringer's (Lactated Ringers) 1,000 mls @ 100 mls/hr IV CONT OZ Naloxone HCl (Naloxone 0.4 Mg/Ml Vial) 0.2 mg IV Q2MIN PRN PRN Reason: Opiate Reversal Ondansetron HCl (Ondansetron 4 Mg/2 Ml Inj) 4 mg IV Q4HR PRN PRN Reason: Nausea And Vomiting Ondansetron HCl (Ondansetron 4 Mg/2 Ml Inj) 4 mg IV Q8HR PRN PRN Reason: Nausea And Vomiting Progesterone (Progesterone, Micronized 100 Mg Capsule) 200 mg PO DAILY OZ Sertraline HCl (Sertraline 50 Mg Tablet) 50 mg PO DAILY OZ Discontinued Medications Tranexamic Acid 1,000 mg/ (Sodium Chloride) 100 mls @ 200 mls/hr IV INTRA-OP ONE Stop: 07/09/25 12:04 Last Infusion: 07/09/25 12:48 Dose: Infused Documented By: JOSE LUIS Admin: 07/09/25 12:13 Dose: 200 mls/hr Documented By: JOSE LUIS Lactated Ringer's (Lactated Ringers) 1,000 mls @ 1,000 mls/hr IV BOLUS ONE Stop: 07/09/25 12:47 Last Infusion: 07/09/25 12:49 Dose: Infused Documented By: JOSE LUIS Admin: 07/09/25 11:52 Dose: 1,000 mls/hr Documented By: JOSE LUIS Vital Signs Vital signs: Vital Signs - 8 hr 07/09/25 10:05 07/09/25 10:05 07/09/25 10:07 Temperature 98.7 F Pulse Rate 94 H 96 H Respiratory Rate 18 Blood Pressure 119/70 119/70 Pulse Oximetry 100 100 Oxygen Delivery Method Room Air 07/09/25 10:30 07/09/25 10:30 07/09/25 11:00 Temperature Pulse Rate 89 Respiratory Rate 19 Blood Pressure 122/64 107/58 L Pulse Oximetry Oxygen Delivery Method 07/09/25 11:00 07/09/25 11:30 07/09/25 11:30 Temperature Pulse Rate 82 79 Respiratory Rate 15 16 Blood Pressure 91/50 L Pulse Oximetry 99 97 Oxygen Delivery Method 07/09/25 11:41 07/09/25 11:41 07/09/25 11:50 Temperature Pulse Rate 75 Respiratory Rate 25 H Blood Pressure 96/49 L 103/57 L Pulse Oximetry 99 Oxygen Delivery Method 07/09/25 11:50 07/09/25 12:00 07/09/25 12:05 Temperature Pulse Rate 79 75 Respiratory Rate 24 23 Blood Pressure 108/56 L Pulse Oximetry 99 100 Oxygen Delivery Method 07/09/25 12:05 07/09/25 12:16 07/09/25 12:16 Temperature Pulse Rate 73 83 Respiratory Rate 14 18 Blood Pressure 134/57 L Pulse Oximetry 100 100 Oxygen Delivery Method 07/09/25 12:30 07/09/25 12:30 07/09/25 12:45 Temperature Pulse Rate 69 73 Respiratory Rate 14 15 Blood Pressure 111/54 L Pulse Oximetry 96 94 Oxygen Delivery Method 07/09/25 12:45 07/09/25 13:00 07/09/25 13:00 Temperature Pulse Rate 71 Respiratory Rate 13 Blood Pressure 118/57 L 112/58 L Pulse Oximetry 98 Oxygen Delivery Method 07/09/25 13:09 07/09/25 13:10 07/09/25 13:10 Temperature 98.3 F Pulse Rate 71 69 Respiratory Rate 14 14 Blood Pressure 98/54 L 98/54 L Pulse Oximetry 97 Oxygen Delivery Method 07/09/25 13:15 07/09/25 13:15 07/09/25 13:20 Temperature Pulse Rate 76 Respiratory Rate 13 Blood Pressure 107/57 L 114/59 L Pulse Oximetry 99 Oxygen Delivery Method 07/09/25 13:20 07/09/25 13:25 07/09/25 13:25 Temperature Pulse Rate 74 67 Respiratory Rate 18 13 Blood Pressure 116/65 Pulse Oximetry 97 100 Oxygen Delivery Method 07/09/25 13:30 07/09/25 13:30 07/09/25 13:35 Temperature Pulse Rate 67 Respiratory Rate 14 Blood Pressure 109/58 L 110/62 Pulse Oximetry 99 Oxygen Delivery Method 07/09/25 13:35 07/09/25 13:40 07/09/25 13:40 Temperature Pulse Rate 69 69 Respiratory Rate 15 18 Blood Pressure 117/55 L Pulse Oximetry 100 99 Oxygen Delivery Method 07/09/25 13:45 07/09/25 13:45 07/09/25 13:50 Temperature Pulse Rate 66 Respiratory Rate 17 Blood Pressure 110/61 105/54 L Pulse Oximetry 100 Oxygen Delivery Method 07/09/25 13:50 07/09/25 14:00 07/09/25 14:00 Temperature Pulse Rate 77 68 Respiratory Rate 25 H 24 Blood Pressure 90/53 L Pulse Oximetry 99 100 Oxygen Delivery Method 07/09/25 14:10 07/09/25 14:10 07/09/25 14:20 Temperature Pulse Rate 67 Respiratory Rate 28 H Blood Pressure 90/54 L 95/58 L Pulse Oximetry 99 Oxygen Delivery Method 07/09/25 14:20 Temperature Pulse Rate 65 Respiratory Rate 24 Blood Pressure Pulse Oximetry 98 Oxygen Delivery Method MDM - Female Genitourinary Lab Data 07/09/25 10:12 07/09/25 10:12 Labs: Lab Results 07/09/25 07/09/25 07/09/25 Range/Units 10:12 12:00 13:45 WBC 4.6 (4.5-11.0) X10^3/uL RBC 3.07 L (4.0-5.2) X10^6/uL Hgb 7.1 L (12.0-16.0) g/dL Hct 21.9 L (36-46) % MCV 71.2 L (80-100) fL MCH 23.2 L (26-34) PG MCHC 32.5 (30-36) % RDW 16.3 H (11.6-14.8) % Plt Count 202 (150-400) X10^3/uL Neut % (Auto) 74.6 (50-75) % Lymph % (Auto) 19.4 L (25-40) % Luce % (Auto) 5.2 (3-14) % Eos % (Auto) 0.4 L (2-4) % Baso % (Auto) 0.4 (0-2) % Neut # (Auto) 3500 (7510-8852) /uL Lymph # (Auto) 900 L (3102-7487) /uL Luce # (Auto) 200 (0-900) /uL Eos # (Auto) 0 (0-450) /uL Baso # (Auto) 0 (0-100) /uL PT 10.6 (9.4-12.5) SECONDS INR 0.9 (0.9-1.3) Sodium 136 L (137-145) mmol/L Potassium 3.6 (3.4-5.1) mmol/L Chloride 107 (98-107) mmol/L Carbon Dioxide 23 (22-32) mmol/L BUN 12 (7-17) mg/dL Creatinine 0.61 (0.52-1.04) mg/dL Estimated GFR > 60 (>60) mL/min BUN/Creatinine Ratio 19.7 (6-22) Glucose 134 H (70-99) mg/dL Calcium 8.6 (8.4-10.2) mg/dL Total Bilirubin 0.4 (0.2-1.3) mg/dL AST 23 (14-36) IU/L ALT 16 (<35) IU/L Alkaline Phosphatase 61 (38-126) U/L Total Protein 6.5 (6.3-8.2) g/dL Albumin 4.1 (3.5-5.0) g/dL Globulin 2.4 (1.7-4.1) g/dL Albumin/Globulin Ratio 1.7 (1.0-2.8) TSH 1.05 (0.47-4.68) uIU/mL FSH 2.32 mIU/mL HCG, Quant < 2.39 mIU/mL Urine Color Red Urine Appearance Cloudy Urine pH TNP Ur Specific [place] TNP Urine Protein TNP Urine Glucose (UA) TNP Urine Ketones TNP Urine Occult Blood TNP Urine Nitrate TNP Urine Bilirubin TNP Urine Urobilinogen TNP Ur Leukocyte Esterase TNP Urine RBC >100/hpf H (0-5/HPF) Urine WBC None seen (0-5/HPF) Ur Squamous Epith Cells None seen (0-5/HPF) Urine Bacteria None seen (None) Ur Culture Indicated? Cult not indicated Vol Urine Centrifuged 10ml (unspun) A Blood Type O Positive Antibody Screen Negative Crossmatch See Detail Imaging Data US - WAREHOUSE RECEIVING CLERK: Radiologist's Impression: [address] [place] [id number] Ultrasound Report Signed Patient: Nusrat Avendaño MR#: [id number] : 1980 Acct:[id number] Age/Sex: 45 / F Date of Service: 07/09/25 Loc: ED Accession Number: [id number] Procedure: US pelvic complete Ordering Provider: Mariusz Dumont D.O. PROCEDURE: US PELVIC COMPLETE INDICATIONS: vag bleed TECHNIQUE: Real-time scanning was performed of the pelvic organs, with image documentation. Additional endovaginal scanning was necessary due to incomplete visualization of the adnexal and endometrial structures by transabdominal scanning. COMPARISON: [facility], US, US PELVIC COMPLETE, 09/17/2021, 13:57. FINDINGS: Uterus: Uterus is anteverted. 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 The myometrium is homogeneous. The right endometrium measures 10.4 mm combined thickness and left endometrium measures 8.8 mm in combined thickness. There is ill-defined area of echogenicity in the left uterine horn anteriorly measuring 3.0 x 4.6 x 3.7 cm, which may represent a fibroid. Ovaries: The right ovary measures 3.4 x 3.3 x 2.8 cm, with a calculated ovarian volume of 16.8 cc. The left ovary is not visualized. The right ovary has a normal sonographic appearance. Less than 12 follicles can be seen in each ovary. No adnexal masses are seen. Right ovarian simple cyst measuring 2.6 x 1.8 x 2.8 cm. Other: No pathologic free abdominal or pelvic fluid. IMPRESSION: By coronary uterus. Ill-defined echogenic focus in the left anterior uterine horn measuring up to 3.7 cm may represent fibroid versus endometrial hyperplasia. Consider short interval follow-up pelvic ultrasound. Right ovarian simple cyst measuring 2.8 cm. Left ovary not visualized. MDM Narrative Medical decision making narrative: All lab work, vital signs, nurse triage note, medication list, previous ER visits, and all imaging studies reviewed. Hemoglobin 7.1 WBC 4 point platelets 202 INR 0.9. Ultrasound showed by bicoronate uterus ill-defined echogenic focus in the left anterior uterine horn measuring up to 3.7 cm member present fibroid versus endometrial hyperplasia. Right ovarian simple cyst measuring 2.8 cm. Left ovary not visualized. Pt given LR 1L bolus and transfused 1 u PRBC . recapper will be admitting patient Discharge Plan Departure Patient Disposition: Admitted As Inpatient Clinical Impression: Anemia, DUB (dysfunctional uterine bleeding) Admit Date/Time: 07/09/25 14:25 Admit Provider: Ishan Medrano
--- NOTE | 2025-07-09 10:08 | DI.US.S_ITS ---
PROCEDURE: US PELVIC COMPLETE INDICATIONS: vag bleed TECHNIQUE: Real-time scanning was performed of the pelvic organs, with image documentation. Additional endovaginal scanning was necessary due to incomplete visualization of the adnexal and endometrial structures by transabdominal scanning. COMPARISON: [facility], US, US PELVIC COMPLETE, 09/17/2021, 13:57. FINDINGS: Uterus: Uterus is anteverted. 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 The myometrium is homogeneous. The right endometrium measures 10.4 mm combined thickness and left endometrium measures 8.8 mm in combined thickness. There is ill-defined area of echogenicity in the left uterine horn anteriorly measuring 3.0 x 4.6 x 3.7 cm, which may represent a fibroid. Ovaries: The right ovary measures 3.4 x 3.3 x 2.8 cm, with a calculated ovarian volume of 16.8 cc. The left ovary is not visualized. The right ovary has a normal sonographic appearance. Less than 12 follicles can be seen in each ovary. No adnexal masses are seen. Right ovarian simple cyst measuring 2.6 x 1.8 x 2.8 cm. Other: No pathologic free abdominal or pelvic fluid. IMPRESSION: By coronary uterus. Ill-defined echogenic focus in the left anterior uterine horn measuring up to 3.7 cm may represent fibroid versus endometrial hyperplasia. Consider short interval follow-up pelvic ultrasound. Right ovarian simple cyst measuring 2.8 cm. Left ovary not visualized. Approved by: Melody Joshua M.D.,Ph.D. on 07/09/2025 at 11:27
[2025-07-09 10:20] LABS: Add Manual Diff / Slide Review NO; Hematocrit 21.9 % (36-46); Hemoglobin 7.1 g/dL (12.0-16.0); Lymphocytes Absolute Auto 900 /uL (1100-4500); Mean Corpuscular HGB Conc 32.5 % (30-36); Mean Corpuscular Hemoglobin 23.2 PG (26-34); Mean Corpuscular Volume 71.2 fL (80-100); Platelet Count 202 X10^3/uL (150-400)
[2025-07-09 10:26] LABS: INR 0.9 (0.9-1.3); Prothrombin Time 10.6 SECONDS (9.4-12.5)
[2025-07-09 10:31] LABS: Alanine Aminotransferase 16 IU/L (<35); Albumin 4.1 g/dL (3.5-5.0); Albumin Globulin Ratio 1.7 (1.0-2.8); Alkaline Phosphatase 61 U/L (38-126); Blood Urea Nitrogen 12 mg/dL (7-17); Calcium 8.6 mg/dL (8.4-10.2); Carbon Dioxide 23 mmol/L (22-32); Chloride 107 mmol/L (98-107); Estimated Glomerular Filt Rate > 60 mL/min (>60); Globulin 2.4 g/dL (1.7-4.1); Glucose 134 mg/dL (70-99); HEMOLYSIS < 15 (0-50); Potassium 3.6 mmol/L (3.4-5.1); Sodium 136 mmol/L (137-145); Total Protein 6.5 g/dL (6.3-8.2)
[2025-07-09] MEDS: LACTATED RINGERS 1,000 ML 1000 ML IV (11:52)
[2025-07-09 12:06] LABS: HCG Quantitative /Beta subunit < 2.39 mIU/mL
[2025-07-09] MEDS: TRANEXAMIC ACID 1,000 MG in SODIUM CHLORIDE 0.9% 100 ML 200 MG IV ×2 (12:13→18:27)
[2025-07-09 14:13] LABS: Appearance Urine UA Cloudy
[2025-07-09 14:14] LABS: Color Urine UA Red; Culture Indicated Urine Cult Not Indicated
[2025-07-09 14:43] LABS: Follicle Stimulating Hormone 2.32 mIU/mL
--- NOTE | 2025-07-09 14:56 | PM.GYNHP.1 ---
History of Present Illness History of Present Illness Reason for admission: vaginal bleeding (acute on chronic heavy vaginal bleeding, increased for last three days with large clots. Near syncope at home. Brought to ED. Tachycardic with severe anemia and relative hypotension. Known Bicornuate uterus) Narrative: Nusrat Avendaño is a 45 year old female with a long h/o iron deficiency. S/P second trimester stillborn x 2 w/ D+C. Still considering possible future [facility] Medical History Allergies (~2015) PTSD (post-traumatic stress disorder) (~1989) Headache (~2009) Fractures (~2015) Cervical spine disease (~1997) Carpal tunnel syndrome (~2017) Ankle pain (~2015) Anemia (~1999) Tinnitus (~2008) Ovarian cyst (~1999) Heavy menstrual period (~1989) Hemorrhoid (~2008) GERD (gastroesophageal reflux disease) (~2006) Anxiety (~1989) Depression (~1989) Kienbock's disease Surgical History Anesthesia History of surgery (~2015) S/P wrist surgery (~2017) Family History Father Mental health problem Mother Hypertension Hyperlipidemia Mental health problem Sister Diabetes mellitus Mental health problem Grandmother Diabetes mellitus History of heart disease Hyperlipidemia Hypertension Family/Other Hyperlipidemia Meds Home Medications and Allergies Home Medications ?Medication ?Instructions ?Recorded ?Confirmed ?Type sertraline 50 mg tablet (Zoloft) 50 mg PO DAILY 07/04/21 07/09/25 History cyclobenzaprine 10 mg tablet 10 mg PO BID PRN muscle spasm #10 07/17/21 07/09/25 Rx tabs ascorbate calcium (vitamin C) 500 500 mg PO DAILY 08/21/21 07/09/25 History mg tablet triamcinolone acetonide 0.1 % 1 applic topical TID #80 grams 09/26/21 07/09/25 Rx topical cream albuterol sulfate 90 mcg/actuation 2 puff inhalation Q8H PRN 07/09/25 07/09/25 History aerosol inhaler shortness of breath or wheezing buprenorphine 8 mg-naloxone 2 mg 0.5 film sublingual BID 07/09/25 07/09/25 History sublingual film ferrous sulfate 325 mg (65 mg 325 mg PO DAILY 07/09/25 07/09/25 History iron) tablet (FeroSul) Allergies Allergy/AdvReac Type Severity Reaction Status Date / Time ibuprofen Allergy Intermediate Swelling Verified 08/21/21 09:14 of the Eye Review of Systems Review of Systems Narrative: Recent fatigue and lightheadedness. Some irregular HR Exam Vital Signs (past 8 hours): - 07/09/25 10:05 07/09/25 10:05 07/09/25 10:07 Temperature 98.7 F Pulse Rate 94 H 96 H Respiratory Rate 18 Blood Pressure 119/70 119/70 Pulse Oximetry 100 100 Oxygen Delivery Method Room Air 07/09/25 10:30 07/09/25 10:30 07/09/25 11:00 Temperature Pulse Rate 89 Respiratory Rate 19 Blood Pressure 122/64 107/58 L Pulse Oximetry Oxygen Delivery Method 07/09/25 11:00 07/09/25 11:30 07/09/25 11:30 Temperature Pulse Rate 82 79 Respiratory Rate 15 16 Blood Pressure 91/50 L Pulse Oximetry 99 97 Oxygen Delivery Method 07/09/25 11:41 07/09/25 11:41 07/09/25 11:50 Temperature Pulse Rate 75 Respiratory Rate 25 H Blood Pressure 96/49 L 103/57 L Pulse Oximetry 99 Oxygen Delivery Method 07/09/25 11:50 07/09/25 12:00 07/09/25 12:05 Temperature Pulse Rate 79 75 Respiratory Rate 24 23 Blood Pressure 108/56 L Pulse Oximetry 99 100 Oxygen Delivery Method 07/09/25 12:05 07/09/25 12:16 07/09/25 12:16 Temperature Pulse Rate 73 83 Respiratory Rate 14 18 Blood Pressure 134/57 L Pulse Oximetry 100 100 Oxygen Delivery Method 07/09/25 12:30 07/09/25 12:30 07/09/25 12:45 Temperature Pulse Rate 69 73 Respiratory Rate 14 15 Blood Pressure 111/54 L Pulse Oximetry 96 94 Oxygen Delivery Method 07/09/25 12:45 07/09/25 13:00 07/09/25 13:00 Temperature Pulse Rate 71 Respiratory Rate 13 Blood Pressure 118/57 L 112/58 L Pulse Oximetry 98 Oxygen Delivery Method 07/09/25 13:09 07/09/25 13:10 07/09/25 13:10 Temperature 98.3 F Pulse Rate 71 69 Respiratory Rate 14 14 Blood Pressure 98/54 L 98/54 L Pulse Oximetry 97 Oxygen Delivery Method 07/09/25 13:15 07/09/25 13:15 07/09/25 13:20 Temperature Pulse Rate 76 Respiratory Rate 13 Blood Pressure 107/57 L 114/59 L Pulse Oximetry 99 Oxygen Delivery Method 07/09/25 13:20 07/09/25 13:25 07/09/25 13:25 Temperature Pulse Rate 74 67 Respiratory Rate 18 13 Blood Pressure 116/65 Pulse Oximetry 97 100 Oxygen Delivery Method 07/09/25 13:30 07/09/25 13:30 07/09/25 13:35 Temperature Pulse Rate 67 Respiratory Rate 14 Blood Pressure 109/58 L 110/62 Pulse Oximetry 99 Oxygen Delivery Method 07/09/25 13:35 07/09/25 13:40 07/09/25 13:40 Temperature Pulse Rate 69 69 Respiratory Rate 15 18 Blood Pressure 117/55 L Pulse Oximetry 100 99 Oxygen Delivery Method 07/09/25 13:45 07/09/25 13:45 07/09/25 13:50 Temperature Pulse Rate 66 Respiratory Rate 17 Blood Pressure 110/61 105/54 L Pulse Oximetry 100 Oxygen Delivery Method 07/09/25 13:50 07/09/25 14:00 07/09/25 14:00 Temperature Pulse Rate 77 68 Respiratory Rate 25 H 24 Blood Pressure 90/53 L Pulse Oximetry 99 100 Oxygen Delivery Method 07/09/25 14:10 07/09/25 14:10 07/09/25 14:20 Temperature Pulse Rate 67 Respiratory Rate 28 H Blood Pressure 90/54 L 95/58 L Pulse Oximetry 99 Oxygen Delivery Method 07/09/25 14:20 07/09/25 14:38 Temperature 98.2 F Pulse Rate 65 65 Respiratory Rate 24 14 Blood Pressure 104/59 L Pulse Oximetry 98 Oxygen Delivery Method Oxygen Delivery Method Room Air Narrative Exam Narrative: Lying down, feels better when not standing Const General: cooperative and comfortable Nutritional Appearance: average body habitus Orientation: awake, oriented x3, oriented to person, oriented to place and oriented to time HENPA Head: normal to inspection, normocephalic and atraumatic Eyes General: appearance normal, both eyes and all related structures Neck Thyroid: thyroid normal Chest Chest: normal inspection of the chest Resp Effort & Inspection: normal respiratory effort Cardio Palpation: normal PMI Rate: regular rate Rhythm: other (Occasional skipped beats or PVC) Heart Sounds: S1 normal and S2 normal GI Inspection: normal to inspection Rectal Exam: normal sphincter tone General: other (Mild enlargement c/w bicornuate vs fibroid) External Female Exam: normal external appearance Speculum Exam - Vagina: vaginal bleeding (large clots noted, removed) Speculum Exam - Cervix: normal appearance of the cervix Bimanual Exam- Vagina & Uterus: uterine size normal (8-10 weeks, bicornuate) Bimanual Exam- Adnexa, other: normal adnexae OB/External & Speculum: vaginal bleeding (large clots noted, removed) Neuro General: patient alert, patient awake and patient oriented x3 Cognition: normal cognition Speech: speech normal Extrem General: normal to inspection Psych Appearance: grossly normal Mental Status: mental status grossly normal Speech and Movement: speech and movement normal Mood: congruent mood Affect: normal affect Attitude: cooperative Thought Process: normal Thought Content: normal Judgment: judgment good Objective Labs 07/09/25 10:12 07/09/25 10:12 Labs: Laboratory Results - last 24 hr 07/09/25 07/09/25 07/09/25 10:12 12:00 13:45 WBC 4.6 RBC 3.07 L Hgb 7.1 L Hct 21.9 L MCV 71.2 L MCH 23.2 L MCHC 32.5 RDW 16.3 H Plt Count 202 Neut % (Auto) 74.6 Lymph % (Auto) 19.4 L [place] % (Auto) 5.2 Eos % (Auto) 0.4 L Baso % (Auto) 0.4 Neut # (Auto) 3500 Lymph # (Auto) 900 L [place] # (Auto) 200 Eos # (Auto) 0 Baso # (Auto) 0 PT 10.6 INR 0.9 Sodium 136 L Potassium 3.6 Chloride 107 Carbon Dioxide 23 BUN 12 Creatinine 0.61 Estimated GFR > 60 BUN/Creatinine Ratio 19.7 Glucose 134 H Calcium 8.6 Total Bilirubin 0.4 AST 23 ALT 16 Alkaline Phosphatase 61 Total Protein 6.5 Albumin 4.1 Globulin 2.4 Albumin/Globulin Ratio 1.7 FSH 2.32 HCG, Quant < 2.39 Urine Color Red Urine Appearance Cloudy Urine pH TNP Ur Specific [place] TNP Urine Protein TNP Urine Glucose (UA) TNP Urine Ketones TNP Urine Occult Blood TNP Urine Nitrate TNP Urine Bilirubin TNP Urine Urobilinogen TNP Ur Leukocyte Esterase TNP Urine RBC >100/hpf H Urine WBC None seen Ur Squamous Epith Cells None seen Urine Bacteria None seen Ur Culture Indicated? Cult not indicated Vol Urine Centrifuged 10ml (unspun) A Blood Type O Positive Antibody Screen Negative Crossmatch See Detail Assessment & Plan Assessment & Plan narrative: +Acute on chronic severe anemia. Known bicornuate uterus with possible uterine fibroid, endometrium somewhat thickened. Needs uterine endometrial sampling after initial stabilization, to r/o endometrial hyperplasia , polyps or endometrial cancer. Possible irregular ovulation- will check TSH, FSH. HCG was negative Time-Based Coding :: [TOTAL MINUTES] spent with patient and on the chart (including review of chart, obtaining history, exam, reviewing outside data, placing orders, documenting exam and treatment plan, and counseling patient) on [DATE]. 60 minutes
[2025-07-09 14:58] LABS: Thyroid Stimulating Hormone 1.05 uIU/mL (0.47-4.68)
--- NOTE | 2025-07-09 15:10 | PC.NURSE ---
Pt took 4mg suboxone sublingual from her home supply @ 14:00 w/Dr. Medrano consent, while he was present in the room. Remaining 07/15 films sent to pharmacy in addition to her Albuteral Sulfate Inhaler Q8HR for SOB or wheezing.
[2025-07-09] MEDS: ACETAMINOPHEN 325 MG TABLET 650 MG PO ×2 (16:22→21:26)
[2025-07-09] MEDS: PROGESTERONE, MICRONIZED 100 MG CAPSULE 200 MG PO ×2 (16:37→21:26)
[2025-07-09] MEDS: LACTATED RINGERS 1,000 ML 100 ML IV (17:15)
--- NOTE | 2025-07-09 18:09 | PC.NURSE ---
Upon standing up to ambulate with SBA to bathroom, pt exhibited 5-10 tablesppoon sized blood clots in brief.
[2025-07-09 18:54] LABS: Add Manual Diff / Slide Review NO; Hematocrit 22.0 % (36-46); Hemoglobin 7.2 g/dL (12.0-16.0); Lymphocytes Absolute Auto 1700 /uL (1100-4500); Mean Corpuscular HGB Conc 32.8 % (30-36); Mean Corpuscular Hemoglobin 25.0 PG (26-34); Mean Corpuscular Volume 76.3 fL (80-100); Platelet Count 177 X10^3/uL (150-400)
[2025-07-09 19:05] LABS: Blood Urea Nitrogen 7 mg/dL (7-17); Calcium 8.2 mg/dL (8.4-10.2); Carbon Dioxide 23 mmol/L (22-32); Chloride 108 mmol/L (98-107); Estimated Glomerular Filt Rate > 60 mL/min (>60); Glucose 127 mg/dL (70-99); HEMOLYSIS < 15 (0-50); Potassium 3.7 mmol/L (3.4-5.1); Sodium 135 mmol/L (137-145)
[2025-07-09] MEDS: BUPRENORPHINE/NALOXONE 8MG/2MG 1 TAB 0.5 TAB SL (21:26)
--- NOTE | 2025-07-09 23:41 | EKG_ITS ---
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
[2025-07-10] VITALS (14 sets, daily range): BP systolic 88–99; BP diastolic 44–55; PULSE 65–77; RESP 16–18; TEMP 36.1–36.6; O2SAT 94–96
[2025-07-10] MEDS: PROGESTERONE, MICRONIZED 100 MG CAPSULE 200 MG PO ×2 (00:25→08:45)
--- NOTE | 2025-07-10 00:32 | PM.PN.IH.1 ---
Subjective Subjective Date Patient Seen: 07/10/25 Exam Vital Signs (past 8 hours): - 07/09/25 18:12 07/09/25 18:38 07/09/25 20:00 Temperature 97.2 F L 98.8 F 97.7 F Pulse Rate 69 83 69 Respiratory Rate 18 17 20 Blood Pressure 97/53 L 118/62 102/57 L Pulse Oximetry 98 97 96 Oxygen Flow Rate 0 07/09/25 22:00 07/09/25 23:07 07/09/25 23:23 Temperature 97.4 F L 97.6 F Pulse Rate 71 71 Respiratory Rate 20 18 Blood Pressure 104/64 107/54 L 90/44 L Pulse Oximetry 96 Oxygen Flow Rate 0 07/10/25 00:07 Temperature 97.8 F Pulse Rate 65 Respiratory Rate 18 Blood Pressure 88/47 L Pulse Oximetry Oxygen Flow Rate Oxygen Delivery Method Room Air Oxygen Flow Rate 0 Objective Labs 07/09/25 18:47 07/09/25 18:47 Labs: Laboratory Results - last 24 hr 07/09/25 07/09/25 07/09/25 10:12 12:00 13:45 WBC 4.6 RBC 3.07 L Hgb 7.1 L Hct 21.9 L MCV 71.2 L MCH 23.2 L MCHC 32.5 RDW 16.3 H Plt Count 202 Neut % (Auto) 74.6 Lymph % (Auto) 19.4 L [place] % (Auto) 5.2 Eos % (Auto) 0.4 L Baso % (Auto) 0.4 Neut # (Auto) 3500 Lymph # (Auto) 900 L [place] # (Auto) 200 Eos # (Auto) 0 Baso # (Auto) 0 PT 10.6 INR 0.9 Sodium 136 L Potassium 3.6 Chloride 107 Carbon Dioxide 23 BUN 12 Creatinine 0.61 Estimated GFR > 60 BUN/Creatinine Ratio 19.7 Glucose 134 H Hemoglobin A1c TNP Calcium 8.6 Total Bilirubin 0.4 AST 23 ALT 16 Alkaline Phosphatase 61 Total Protein 6.5 Albumin 4.1 Globulin 2.4 Albumin/Globulin Ratio 1.7 TSH 1.05 FSH 2.32 HCG, Quant < 2.39 Urine Color Red Urine Appearance Cloudy Urine pH TNP Ur Specific [place] TNP Urine Protein TNP Urine Glucose (UA) TNP Urine Ketones TNP Urine Occult Blood TNP Urine Nitrate TNP Urine Bilirubin TNP Urine Urobilinogen TNP Ur Leukocyte Esterase TNP Urine RBC >100/hpf H Urine WBC None seen Ur Squamous Epith Cells None seen Urine Bacteria None seen Ur Culture Indicated? Cult not indicated Vol Urine Centrifuged 10ml (unspun) A Blood Type O Positive Antibody Screen Negative Crossmatch See Detail 07/09/25 18:47 WBC 5.7 RBC 2.88 L Hgb 7.2 L Hct 22.0 L MCV 76.3 L D MCH 25.0 L MCHC 32.8 RDW 20.1 H Plt Count 177 Neut % (Auto) 61.3 Lymph % (Auto) 30.4 [place] % (Auto) 6.7 Eos % (Auto) 1.0 L Baso % (Auto) 0.6 Neut # (Auto) 3500 Lymph # (Auto) 1700 [place] # (Auto) 400 Eos # (Auto) 100 Baso # (Auto) 0 PT INR Sodium 135 L Potassium 3.7 Chloride 108 H Carbon Dioxide 23 BUN 7 Creatinine 0.56 Estimated GFR > 60 BUN/Creatinine Ratio 12.5 Glucose 127 H Hemoglobin A1c Calcium 8.2 L Total Bilirubin AST ALT Alkaline Phosphatase Total Protein Albumin Globulin Albumin/Globulin Ratio TSH FSH HCG, Quant Urine Color Urine Appearance Urine pH Ur Specific [place] Urine Protein Urine Glucose (UA) Urine Ketones Urine Occult Blood Urine Nitrate Urine Bilirubin Urine Urobilinogen Ur Leukocyte Esterase Urine RBC Urine WBC Ur Squamous Epith Cells Urine Bacteria Ur Culture Indicated? Vol Urine Centrifuged Blood Type Antibody Screen Crossmatch [facility] Medical History Allergies (~2015) PTSD (post-traumatic stress disorder) (~1989) Headache (~2009) Fractures (~2015) Cervical spine disease (~1997) Carpal tunnel syndrome (~2017) Ankle pain (~2015) Anemia (~1999) Tinnitus (~2008) Ovarian cyst (~1999) Heavy menstrual period (~1989) Hemorrhoid (~2008) GERD (gastroesophageal reflux disease) (~2006) Anxiety (~1989) Depression (~1989) Kienbock's disease Surgical History Anesthesia History of surgery (~2015) S/P wrist surgery (~2017) Family History Father Mental health problem Mother Hypertension Hyperlipidemia Mental health problem Sister Diabetes mellitus Mental health problem Grandmother Diabetes mellitus History of heart disease Hyperlipidemia Hypertension Family/Other Hyperlipidemia Social History household members: family and children Smoking Status: Former smoker alcohol intake: never Assessment & Plan Assessment & Plan narrative: Patient has received third unit prbc's. Bleeding decreased but still passing clots when OOB. Will check repeat CBC 2 hours after third unit and 1 unit of FFP ordered. Time-Based Coding :: [TOTAL MINUTES] spent with patient and on the chart (including review of chart, obtaining history, exam, reviewing outside data, placing orders, documenting exam and treatment plan, and counseling patient) on [DATE]. Quality VTE Deep Vein Thrombosis/Pulmonary Embolism Present on Admission: No [facility]H PROFEE Warp Tester Document charge(s): No
[2025-07-10] MEDS: TRANEXAMIC ACID 1,000 MG in SODIUM CHLORIDE 0.9% 100 ML 200 MG IV (00:49)
[2025-07-10 02:54] LABS: Add Manual Diff / Slide Review NO; Lymphocytes Absolute Auto 1900 /uL (1100-4500); Mean Corpuscular HGB Conc 33.4 % (30-36); Mean Corpuscular Hemoglobin 26.1 PG (26-34); Mean Corpuscular Volume 78.1 fL (80-100); Platelet Count 139 X10^3/uL (150-400)
[2025-07-10 02:59] LABS: Hematocrit 20.6 % (36-46); Hemoglobin 6.9 g/dL (12.0-16.0)
[2025-07-10 03:02] LABS: Alanine Aminotransferase 10 IU/L (<35); Albumin 2.9 g/dL (3.5-5.0); Albumin Globulin Ratio 1.5 (1.0-2.8); Alkaline Phosphatase 37 U/L (38-126); Blood Urea Nitrogen 5 mg/dL (7-17); Calcium 7.8 mg/dL (8.4-10.2); Carbon Dioxide 24 mmol/L (22-32); Chloride 109 mmol/L (98-107); Estimated Glomerular Filt Rate > 60 mL/min (>60); Globulin 1.9 g/dL (1.7-4.1); Glucose 98 mg/dL (70-99); HEMOLYSIS < 15 (0-50); Total Protein 4.8 g/dL (6.3-8.2)
[2025-07-10 03:03] LABS: Magnesium 1.6 mg/dL (1.6-2.3); Potassium 4.0 mmol/L (3.4-5.1); Sodium 135 mmol/L (137-145)
[2025-07-10] MEDS: LACTATED RINGERS 1,000 ML 100 ML IV (04:00)
--- NOTE | 2025-07-10 04:07 | PC.NURSE ---
Pt experienced ongoing non-menses vaginal bleeding throughout shift, averaging approximately 50 ml/hr of bright red blood. Pt has been passing clots ~1/8-1/4 cup of medium clots when getting up to void. At time of writing this, patient has received 1 unit of FFP and 2 units of PRBCs, in addition to the 2 units of PRBCs given on prior shift. Patient tolerated all transfusions well with no s/s of transfusion rxn observed. Systolic BP remained in the low 90's, MAP >65, HR in the 70's (see chart for detail). No episodes of tachycardia, SOB, or dizziness noted. At ~2300 pt c/o increasing 7/10 kidney pain in the bilateral low back, stating that she has been having similar pain intermittently over the last few weeks but never this severe. UA was negative, no s/s infection observed, WBC WNL, no associated changes in urinary output noted. Provider notified of patient condition and any changes throughout shift, including continued bleeding and passage of clots, lab values, new/worsening pain complaints. Orders followed as received.
[2025-07-10 04:39] LABS: Fibrinogen 173 mg/dL (238-498)
--- NOTE | 2025-07-10 07:25 | PM.DS.IH.1 ---
History of Present Illness History of Present Illness Date Patient Seen: 07/10/25 Time Patient Seen: 07:25 Date of Onset of Symptoms: 07/06/25 Chief complaint: Hemhorraging from uterus Narrative: Patient with known bicornuate uterus with chronic heavy bleeding since around 2019, with iron deficiency anemia. Prior endometrial biopsy , benign, in 2021. Admitted from ED following progressive weakness w/ near syncopal episode. Hemorrhage began 07/06 and persisted Initial HB 7.1. Following 2 units prbs H/H 7.2 with ongoing bleeding. Started on TXA q 6 , Estrace 1 mg and prometrium scheduled q 6 hrs ( pharmacy did not have OCP's.) US showed possible fibroid in left horn. Patient received 5 units prbs and unit FFP ( second unit FFP pending.) Given limited blood supply at [facility] patient being transferred to higher level of care with WEB MASTER expertise and Blood bank access. Discharge Providers Provider Date of admission: 07/09/25 14:25 Discharge Date: 07/10/25 Primary care physician: Linda Merino PA-C Discharge provider: Ishan Medrano MD Summary Hospital Course Discharge Diagnosis: Bicornuate uterus with possible fibroid in left horn with acute uterine hemorrhage on chronic heavy menses and iron deficiency anemia. Has not responded to initial conservative management and requiring ongoing transfusion of blood products at a facility with limited blood supply Hospital Course: Despite scheduled TXA, Estrogen and progesterone, prbc's x5 and FFPx1 patient has not stabilized sufficiently for conservative management. Limited blood supply at [facility] and instrumentation controls engineer expertise which may be required for surgical management. Considered D+C/Hysteroscopy at [place] but risk of further hemorrhage- potential for UA embolization, ablation or hysterectomy. Patient has not ruled out future pregnancies in her mind Status at Discharge Cognitive/behavioral status at discharge: oriented and calm Overall status at discharge: patient is not back to baseline Time Spent with Patient Time spent: Greater than 30 minutes Exam Vital Signs (past 8 hours): - 07/10/25 00:07 07/10/25 00:55 07/10/25 01:40 Temperature 97.8 F 97.4 F L Pulse Rate 65 71 68 Respiratory Rate 18 18 Blood Pressure 88/47 L 92/46 L 92/47 L Pulse Oximetry 96 Oxygen Flow Rate 0 07/10/25 03:00 07/10/25 03:01 07/10/25 03:16 Temperature 97.4 F L 97.8 F Pulse Rate 70 70 73 Respiratory Rate 16 18 Blood Pressure 99/44 L 99/44 L 94/53 L Pulse Oximetry 95 Oxygen Flow Rate 0 07/10/25 04:15 07/10/25 04:15 07/10/25 04:36 Temperature 97.6 F 96.9 F L Pulse Rate 74 74 76 Respiratory Rate 16 18 Blood Pressure 91/50 L 91/50 L 97/47 L Pulse Oximetry 94 Oxygen Flow Rate 0 07/10/25 04:51 07/10/25 05:50 07/10/25 06:57 Temperature 97.2 F L 97.1 F L Pulse Rate 77 74 72 Respiratory Rate 16 18 Blood Pressure 95/52 L 91/55 L Pulse Oximetry Oxygen Flow Rate 07/10/25 06:58 07/10/25 07:21 Temperature 97.1 F L 97.7 F Pulse Rate 72 66 Respiratory Rate 18 16 Blood Pressure 91/55 L 93/50 L Pulse Oximetry 94 Oxygen Flow Rate 0 Oxygen Delivery Method Room Air Oxygen Flow Rate 0 Const General: cooperative and healthy appearing Nutritional Appearance: obese Orientation: alert and awake HENMT Head: normal to inspection Nose: external nose normal Face and sinus: normal facial exam Eyes General: appearance normal, both eyes and all related structures Neck Neck: supple Thyroid: thyroid normal Resp Effort & Inspection: normal respiratory effort Auscultation: clear to auscultation bilaterally Cardio Rate: regular rate Rhythm: regular rhythm and other (occasional PC) GI Inspection: normal to inspection Palpation: soft Auscultation: normal bowel sounds Rectal Exam: normal sphincter tone Other: No rectal or RV masses Speculum Exam - Vagina: vaginal bleeding Speculum Exam - Cervix: normal appearance of the cervix Bimanual Exam- Vagina & Uterus: enlarged and other (Bicornuate, around 8 weeks size) Bimanual Exam- Adnexa, other: normal adnexae and normal rectovaginal exam OB/External & Speculum: vaginal bleeding Neuro General: patient alert and patient oriented x3 Cognition: normal cognition Speech: speech normal Gait: other (lightheaded d/t anemia) Extrem General: normal to inspection Psych Appearance: grossly normal Mental Status: mental status grossly normal Affect: normal affect Attitude: cooperative Thought Process: normal Objective Labs 07/10/25 02:42 07/10/25 02:42 Labs: Laboratory Results - last 24 hr 07/09/25 07/09/25 07/09/25 10:12 12:00 13:45 WBC 4.6 RBC 3.07 L Hgb 7.1 L Hct 21.9 L MCV 71.2 L MCH 23.2 L MCHC 32.5 RDW 16.3 H Plt Count 202 Neut % (Auto) 74.6 Lymph % (Auto) 19.4 L [place] % (Auto) 5.2 Eos % (Auto) 0.4 L Baso % (Auto) 0.4 Neut # (Auto) 3500 Lymph # (Auto) 900 L [place] # (Auto) 200 Eos # (Auto) 0 Baso # (Auto) 0 PT 10.6 INR 0.9 Fibrinogen Sodium 136 L Potassium 3.6 Chloride 107 Carbon Dioxide 23 BUN 12 Creatinine 0.61 Estimated GFR > 60 BUN/Creatinine Ratio 19.7 Glucose 134 H Hemoglobin A1c TNP Calcium 8.6 Magnesium Total Bilirubin 0.4 AST 23 ALT 16 Alkaline Phosphatase 61 Total Protein 6.5 Albumin 4.1 Globulin 2.4 Albumin/Globulin Ratio 1.7 TSH 1.05 FSH 2.32 HCG, Quant < 2.39 Urine Color Red Urine Appearance Cloudy Urine pH TNP Ur Specific [place] TNP Urine Protein TNP Urine Glucose (UA) TNP Urine Ketones TNP Urine Occult Blood TNP Urine Nitrate TNP Urine Bilirubin TNP Urine Urobilinogen TNP Ur Leukocyte Esterase TNP Urine RBC >100/hpf H Urine WBC None seen Ur Squamous Epith Cells None seen Urine Bacteria None seen Ur Culture Indicated? Cult not indicated Vol Urine Centrifuged 10ml (unspun) A Blood Type O Positive Antibody Screen Negative Crossmatch See Detail 07/09/25 07/10/25 18:47 02:42 WBC 5.7 5.1 RBC 2.88 L 2.64 L Hgb 7.2 L 6.9 L* Hct 22.0 L 20.6 L* MCV 76.3 L D 78.1 L MCH 25.0 L 26.1 MCHC 32.8 33.4 RDW 20.1 H 20.6 H Plt Count 177 139 L Neut % (Auto) 61.3 55.5 Lymph % (Auto) 30.4 37.4 [place] % (Auto) 6.7 5.8 Eos % (Auto) 1.0 L 0.9 L Baso % (Auto) 0.6 0.4 Neut # (Auto) 3500 2800 Lymph # (Auto) 1700 1900 [place] # (Auto) 400 300 Eos # (Auto) 100 0 Baso # (Auto) 0 0 PT INR Fibrinogen 173 L Sodium 135 L 135 L Potassium 3.7 4.0 Chloride 108 H 109 H Carbon Dioxide 23 24 BUN 7 5 L Creatinine 0.56 0.54 Estimated GFR > 60 > 60 BUN/Creatinine Ratio 12.5 9.3 Glucose 127 H 98 Hemoglobin A1c Calcium 8.2 L 7.8 L Magnesium 1.6 Total Bilirubin 1.4 H AST 17 ALT 10 Alkaline Phosphatase 37 L Total Protein 4.8 L Albumin 2.9 L Globulin 1.9 Albumin/Globulin Ratio 1.5 TSH FSH HCG, Quant Urine Color Urine Appearance Urine pH Ur Specific [place] Urine Protein Urine Glucose (UA) Urine Ketones Urine Occult Blood Urine Nitrate Urine Bilirubin Urine Urobilinogen Ur Leukocyte Esterase Urine RBC Urine WBC Ur Squamous Epith Cells Urine Bacteria Ur Culture Indicated? Vol Urine Centrifuged Blood Type Antibody Screen Crossmatch [facility] Medical History Allergies (~2015) PTSD (post-traumatic stress disorder) (~1989) Headache (~2009) Fractures (~2015) Cervical spine disease (~1997) Carpal tunnel syndrome (~2017) Ankle pain (~2015) Anemia (~1999) Tinnitus (~2008) Ovarian cyst (~1999) Heavy menstrual period (~1989) Hemorrhoid (~2008) GERD (gastroesophageal reflux disease) (~2006) Anxiety (~1989) Depression (~1989) Kienbock's disease Surgical History Anesthesia History of surgery (~2015) S/P wrist surgery (~2017) Family History Father Mental health problem Mother Hypertension Hyperlipidemia Mental health problem Sister Diabetes mellitus Mental health problem Grandmother Diabetes mellitus History of heart disease Hyperlipidemia Hypertension Family/Other Hyperlipidemia Social History household members: family and children Smoking Status: Former smoker alcohol intake: never Discharge Assessment & Plan Assessment and Plan Assessment: Given ongoing bleeding and limited resources locally decision ws made to transfer by ambulance for higher level of care, including WEB MA[employer] surgical expertise and blood banking resources Plan of Treatment: Transfer by ambulance to [facility] , Receiving facility agrees to accept, receiving physician Lennie Arellano MD accepted. Risks and benefits reviewed and patient desires transfer, Discharge Plan Discharge Plan Patient Disposition: Home Provider Discharge Comment: Transfer by ambulance to [facility]. Transfer consents including risks and benefits- hemorrhage en route, CV instability. Patient accepts transfer Discharge orders & Medications Prescriptions: Continued sertraline [Zoloft] 50 mg tablet 50 mg PO DAILY triamcinolone acetonide 0.1 % cream 1 applic topical TID Qty: 80 0RF ascorbate calcium (vitamin C) 500 mg tablet 500 mg PO DAILY cyclobenzaprine 10 mg tablet 10 mg PO BID PRN (Reason: muscle spasm) Qty: 10 0RF ferrous sulfate [FeroSul] 325 mg (65 mg iron) tablet 325 mg PO DAILY albuterol sulfate 90 mcg/actuation HFA aerosol inhaler 2 puff inhalation Q8H PRN (Reason: shortness of breath or wheezing) buprenorphine-naloxone 8-2 mg film 0.5 film sublingual BID Medication counseling provided by Pharmacist: No Follow up/Referrals: Linda Merino, PAYogesh [Primary Care Provider, Medical] Diet/Activity/Treatments Diet: Nothing by Mouth Activity: OOB w/ assistance only Visit Report/Discharge Packet Stand Alone Forms: [employer], Patient Portal/API, Stroke Signs & Symptoms, Influenza Vaccine Info, Notice of Privacy Practices, Inpatient vs Outpatient, Pneumococcal Vaccine Info, Pt. Rights & Responsibilities Discharge Data Primary Care Provider: Linda Merino Quality VTE Deep Vein Thrombosis/Pulmonary Embolism Present on Admission: No IH PROFEE Charge Codes Discharge inpatient/observation: [id number]
--- NOTE | 2025-07-10 11:05 | PC.NURSE ---
0730 pt is sleeping resp even and unlabored, PRBCs infusing at 120 and increased to 250/hr pt tolerating well. easily awakened I feel exhausted denies lightheaded. 0830 no bleeding, purewick removed for transfer and no blood on pad or purewick, prbc still infusing with aprox 100cc remainder to infuse by gravity with transport team ALS to [facility]. vss sba to RIYA aponte all personal items and meds from RX given to pT/transport.
== END 2025-07-10 08:50 | disposition short-term general hospital (02) | DRG 760 ==
LOC: ED 12:56 → AC 14:35
PROVIDERS: Admitting Provider Specialist; Emergency Provider Family Medicine; PCP Student in an Organized Health Care Education/Training Program; Referring Provider Family Medicine; Visit Provider Specialist
DX: N93.8 Other specified abnormal uterine and vaginal bleeding (principal); D62 Acute posthemorrhagic anemia; D50.9 Iron deficiency anemia, unspecified; R55 Syncope and collapse; D25.9 Leiomyoma of uterus, unspecified; F32.A Depression, unspecified; Q51.3 Bicornate uterus; Z87.891 Personal history of nicotine dependence
CPT/HCPCS: 36415; 36430; 76830; 76856; 80048; 80053; 81001; 83001; 83735; 84443; 84702; 85025; 85384; 85610; 86850; 86900; 86901; 86927; 93005; 96365; 99222; 99238; 99285; G0378; P9016; J7050; J7120